=== PATIENT | female | born 1940 | race Two or more races ===

== ENCOUNTER 2016-12-07 16:25 | Inpatient (IN) | payer MEDICARE, MEDICAID ==
[~2016-12-07] VITALS: Ht 165.1 cm; Wt 80.7 kg
[~2016-12-07 16:25] MED LIST: ASPIRIN81 MG ORAL; DETROL2 MG ORAL; DEXILANT60 MG ORAL; FUROSEMIDE20 M1 ORAL; GLUCOSAMINE HC500 MG PO; HYDREA500 MG PO; HYDROCHLOROTHIA25 MG ORAL; METOPROLOL TART25 MG ORAL; NEURONTIN300 MG ORAL; OCUVITE1 EA ORAL; PEPCID20 MG ORAL; PREVACID30 MG ORAL; Primrose Oil PO
[2016-12-07 16:26] VITALS: BP 88/46
[2016-12-07 17:53] LABS: MEAN CORPUSCULAR HEMOGLOBIN 41.9 PG (27.0-31.0); MEAN CORPUSCULAR HGB CONC 35.5 G/DL (32.0-36.0); MEAN CORPUSCULAR VOLUME 118 FL (80-99); MEAN PLATELET VOLUME 8.3 FL (6.5-10.1); PLATELET COUNT 249 K/UL (150-450); RED BLOOD COUNT 2.28 M/UL (4.20-5.40); RED CELL DISTRIBUTION WIDTH 11.8 % (11.6-14.8); WHITE BLOOD COUNT 9.4 K/UL (4.8-10.8)
[2016-12-07 17:56] LABS: TROPONIN I < 0.30 ng/mL (<=0.30)
[2016-12-07 17:57] LABS: APPEARANCE,URINE SLIGHTLY CLOUDY; KETONES,URINE NEGATIVE (NEGATIVE); LEUKOCYTE ESTERASE ,URINE 3+ (NEGATIVE); NITRITE,URINE NEGATIVE (NEGATIVE); PH,URINE 5 (4.5-8.0); PROTEIN,URINE 3+ (NEGATIVE); UROBILINOGEN,URINE NORMAL MG/DL (0.0-1.0)
[2016-12-07 17:59] LABS: ALANINE AMINOTRANSFERASE 21 U/L (3-33); ALBUMIN/GLOBULIN RATIO 1.2 (1.0-2.7); ANION GAP 15 (5-15); ASPARTATE AMINO TRANSFERASE 29 U/L (5-40); CALCIUM 8.7 mg/dL (8.6-10.2); CARBON DIOXIDE 27 mEQ/L (20-30); CHLORIDE 94 mEQ/L (98-107); CREATININE 2.1 mg/dL (0.5-0.9); HEMOLYSIS 0; POTASSIUM 3.6 mEQ/L (3.4-4.9); SODIUM 136 mEQ/L (135-145); TOTAL PROTEIN 6.2 g/dL (6.6-8.7)
[2016-12-07 18:10] LABS: CKMB 3.7 ng/mL (< 3.8)
[2016-12-07 18:11] VITALS: BP 93/44
[2016-12-07 18:16] LABS: AMORPHOUS SEDIMENT,UR MODERATE /LPF; BACTERIA,URINE MODERATE /HPF; SQUAMOUS EPITHELIAL CELL,UR FEW /LPF (NONE/OCC)
[2016-12-07] MEDS ORDERED: cefTRIAXone 1 GM in NS 55 ML IVPB ONE (18:45)
[2016-12-07 19:59] LABS: ANISOCYTOSIS 1+; BAND NEUTROPHILS % (MANUAL) 7 % (0-8); BASOPHILS % (MANUAL) 0 % (0-2); EOSINOPHILS % (MANUAL) 0 % (0-3); HYPOCHROMASIA 1+; LYMPHOCYTES % (MANUAL) 8 % (20-45); NEUTROPHILS % (MANUAL) 81 % (45-75); PLATELET ESTIMATE ADEQUATE; PLATELET MORPHOLOGY NORMAL; TOTAL CELLS COUNTED 100
[2016-12-07 20:00] LABS: MACROCYTES 2+
[2016-12-07 20:16] VITALS: BP 102/46
[2016-12-07] MEDS ORDERED: Acetaminophen 500mg (ES) tab ORAL ONE (20:30)
--- NOTE | 2016-12-07 21:54 | Emergency Room Report ---
History of Present Illness General Chief Complaint: Dizziness Source: Patient Present Illness HPI 76-year-old female presents to ED for evaluation. Patient came from PMD office today feeling weak and dizzy. Initially hypotensive as per EMS. BP normal in triage. Patient states she's been feeling dizzy and weak since yesterday. Son states that for the last several days patient has had a fever and has felt weak. Frequent history of UTIs. Patient denies any cough. Denies any chest pain or shortness of breath. Denies sick contacts or recent travel. Denies nausea or vomiting. No other aggravating relieving factors. Denies any other associated symptom Allergies: Coded Allergies: CORTISONE (Verified Allergy, Unknown, 12/07/16) Patient History Past Medical History: HTN Past Surgical History: none Pertinent Family History: none Social History: Denies: alcohol use, drug use, smoking Last Menstrual Period: na Now: No Immunizations: UTD Reviewed Nursing Documentation: PMH: Agreed, PSxH: Agreed Nursing Documentation-PMH Past Medical History: No History, Except For Hx Cardiac Problems: Yes - high cholesterol Hx Hypertension: Yes Review of Systems All Other Systems: negative except mentioned in HPI Physical Exam Vital Signs Date Time Temp Pulse Resp B/P Pulse Ox O2 Delivery O2 Flow Rate FiO2 12/07/16 16:21 62 20 88/46 98 Room Air Sp02 EP Interpretation: reviewed, normal General Appearance: no apparent distress, alert, GCS 15, non-toxic Head: normocephalic, atraumatic Eyes: bilateral eye PERRL, bilateral eye normal inspection ENT: hearing grossly normal, normal pharynx, no angioedema, normal voice Neck: full range of motion, supple/symm/no masses Respiratory: chest non-tender, lungs clear, normal breath sounds, speaking full sentences Cardiovascular #1: regular rate, rhythm, no edema Cardiovascular #2: 2+ carotid (R), 2+ carotid (L), 2+ radial (R), 2+ radial (L) , 2+ dorsalis pedis (R), 2+ dorsalis pedis (L) Gastrointestinal: normal bowel sounds, non tender, soft, non-distended, no guarding, no rebound Rectal: deferred Genitourinary: normal inspection, no CVA tenderness Musculoskeletal: back normal, gait/station normal, normal range of motion, non- tender Neurologic: alert, oriented x3, responsive, motor strength/tone normal, sensory intact, speech normal Psychiatric: judgement/insight normal, memory normal, mood/affect normal, no suicidal/homicidal ideation Reflexes: 3+ bicep (R), 3+ bicep (L), 3+ tricep (R), 3+ tricep (L), 3+ knee (R) , 3+ knee (L) Skin: normal color, no rash, warm/dry, well hydrated Lymphatic: no adenopathy Medical Decision Making Diagnostic Impression: Primary Impression: UTI (urinary tract infection) Qualified Codes: N39.0 - Urinary tract infection, site not specified Additional Impression: ARF (acute renal failure) Qualified Codes: N17.9 - Acute kidney failure, unspecified ER Course Hospital Course 76-year-old female presents to ED c/o dizziness and weakness. Differential diagnoses include: SD/unstable angina, arrythmia, dehydration, CVA/ TIA Clinical course Patient placed on stretcher. on cardiac monitor technician. After initial history and physical I ordered labs, EKG, chest x-ray, IVFs, CT Brain labs reviewed- no leukocytosis, hemoglobin/hematocrit ok, BUN/Cr eleavted, troponins negative, UA + bacteria EKG- NSR, no acute process Chest x-ray- no acute process CT brain-unremarkable abx given. IVFs given Case discussed with Dr. Blackwood and he agreed to accept the patient to his service for further care and support I. I feel this is a highly complex case requiring extensive working including EKG/Rhythm strip, Xray/CT/US, Blood/urine lab work, repeat exams while in ED, and administration of strong opiates/narcotics for pain control, admission to hospital or close patient follow up. Diagnosis - UTI, ARF admitted to floor in serious condition Labs Test 12/07/16 17:20 12/07/16 17:30 White Blood Count 9.4 K/UL (4.8-10.8) Red Blood Count 2.28 M/UL (4.20-5.40) Hemoglobin 9.5 G/DL (12.0-16.0) Hematocrit 26.9 % (37.0-47.0) Mean Corpuscular Volume 118 FL (80-99) Mean Corpuscular Hemoglobin 41.9 PG (27.0-31.0) Mean Corpuscular Hemoglobin Concent 35.5 G/DL (32.0-36.0) Red Cell Distribution Width 11.8 % (11.6-14.8) Platelet Count 249 K/UL (150-450) Mean Platelet Volume 8.3 FL (6.5-10.1) Neutrophils (%) (Auto) % (45.0-75.0) Lymphocytes (%) (Auto) % (20.0-45.0) Monocytes (%) (Auto) % (1.0-10.0) Eosinophils (%) (Auto) % (0.0-3.0) Basophils (%) (Auto) % (0.0-2.0) Differential Total Cells Counted 100 Neutrophils % (Manual) 81 % (45-75) Lymphocytes % (Manual) 8 % (20-45) Monocytes % (Manual) 4 % (1-10) Eosinophils % (Manual) 0 % (0-3) Basophils % (Manual) 0 % (0-2) Band Neutrophils 7 % (0-8) Platelet Estimate Adequate Platelet Morphology Normal Hypochromasia 1+ Anisocytosis 1+ Macrocytosis 2+ Sodium Level 136 mEQ/L (135-145) Potassium Level 3.6 mEQ/L (3.4-4.9) Chloride Level 94 mEQ/L (98-107) Carbon Dioxide Level 27 mEQ/L (20-30) Anion Gap 15 (5-15) Blood Urea Nitrogen 57 mg/dL (7-23) Creatinine 2.1 mg/dL (0.5-0.9) Estimat Glomerular Filtration Rate mL/min (>60) Glucose Level 125 mg/dL (74-106) Calcium Level 8.7 mg/dL (8.6-10.2) Total Bilirubin 1.0 mg/dL (0.0-1.2) Aspartate Amino Transf (AST/SGOT) 29 U/L (5-40) Alanine Aminotransferase (ALT/SGPT) 21 U/L (3-33) Alkaline Phosphatase 42 U/L (35-104) Total Creatine Kinase 288 U/L (26-140) Creatine Kinase MB 3.7 ng/mL (< 3.8) Creatine Kinase MB Relative Index 1.2 Troponin I < 0.30 ng/mL (<=0.30) Pro-B-Type Natriuretic Peptide 3389 pg/mL (0-125) Total Protein 6.2 g/dL (6.6-8.7) Albumin 3.4 g/dL (3.5-5.2) Globulin 2.8 g/dL Albumin/Globulin Ratio 1.2 (1.0-2.7) Urine Color Yellow Urine Appearance Slightly cloudy Urine pH 5 (4.5-8.0) Urine Specific [place] 1.015 (1.005-1.035) Urine Protein 3+ (NEGATIVE) Urine Glucose (UA) Negative (NEGATIVE) Urine Ketones Negative (NEGATIVE) Urine Occult Blood 5+ (NEGATIVE) Urine Nitrite Negative (NEGATIVE) Urine Bilirubin Negative (NEGATIVE) Urine Urobilinogen Normal MG/DL (0.0-1.0) Urine Leukocyte Esterase 3+ (NEGATIVE) Urine RBC 10-15 /HPF (0 - 2) Urine WBC 5-10 /HPF (0 - 2) Urine Squamous Epithelial Cells Few /LPF (NONE/OCC) Urine Amorphous Sediment Moderate /LPF (NONE) Urine Bacteria Moderate /HPF (NONE) EKG Diagnostic Results Rate: normal Rhythm: NSR ST Segments: no acute changes ASA given to the pt in ED: No Rhythm Strip Diag. Results EP Interpretation: yes Rhythm: NSR, no PVC's, no ectopy Chest X-Ray Diagnostic Results EP Interpretation: Yes Findings: no consolidation, no effusion, no pneumothorax, no acute cardiopulmonary disease Number of Views: 1 CT/MRI/US Diagnostic Results CT/MRI/US Diagnostic Results : Imaging Test Ordered: CT head Impression no acute process Last Vital Signs Date Time Temp Pulse Resp B/P Pulse Ox O2 Delivery O2 Flow Rate FiO2 12/07/16 18:11 58 20 93/44 99 Room Air Status: improved Disposition: ADMITTED INPATIENT Condition: Serious Referrals: Karen Blackwood MD (PCP) HERO MARQUEZ M.D. Dec 07, 2016 21:54
[2016-12-07] MEDS ORDERED: DIOVAN80 MG ORAL (21:57)
[2016-12-07 22:01] VITALS: BP 99/49
[2016-12-07] MEDS ORDERED: [UNRECOGNIZED DRUG - OTHER] BOTH EYES (22:04)
[2016-12-07] MEDS ORDERED: PATADAY2.5 ML OP (22:04)
[2016-12-07] MEDS ORDERED: ACULAR5 ML RIGHT EYE (22:04)
[2016-12-07] MEDS ORDERED: TIMOPTIC 0.5%1 DRO1 BOTH EYES (22:04)
[2016-12-08] VITALS (8 sets, daily range): BP systolic 76–121; BP diastolic 40–106
[2016-12-08 06:59] LABS: MEAN CORPUSCULAR HEMOGLOBIN 39.6 PG (27.0-31.0); MEAN CORPUSCULAR HGB CONC 32.8 G/DL (32.0-36.0); MEAN CORPUSCULAR VOLUME 121 FL (80-99); MEAN PLATELET VOLUME 8.9 FL (6.5-10.1); PLATELET COUNT 274 K/UL (150-450); RED BLOOD COUNT 2.64 M/UL (4.20-5.40); RED CELL DISTRIBUTION WIDTH 12.2 % (11.6-14.8); WHITE BLOOD COUNT 8.1 K/UL (4.8-10.8)
[2016-12-08] MEDS ORDERED: D5 1/2NS 1,000 ML IV SCH (07:00)
[2016-12-08 07:51] LABS: ALANINE AMINOTRANSFERASE 24 U/L (3-33); ANION GAP 16 (5-15); ASPARTATE AMINO TRANSFERASE 33 U/L (5-40); CALCIUM 8.8 mg/dL (8.6-10.2); CARBON DIOXIDE 26 mEQ/L (20-30); CHLORIDE 95 mEQ/L (98-107); CREATININE 2.4 mg/dL (0.5-0.9); HEMOLYSIS 3; SODIUM 137 mEQ/L (135-145); TOTAL PROTEIN 6.7 g/dL (6.6-8.7)
[2016-12-08 08:26] LABS: ERYTHROCYTE SEDIMENTATION RATE 117 MM/HR (0-30)
[2016-12-08] MEDS: Heparin 5000 units/ml inj SUBQ SCH ×2 (08:34→21:48)
--- NOTE | 2016-12-08 09:55 | History & Physical ---
Sheela Mcbride NP 12/08/16 0954: History and Physical History & Physicial [id number] Karen Blackwood MD 12/08/16 1857: History and Physical History & Physicial The patient was seen and examined at bedside and all new and available data was reviewed in the patients chart. I agree with the above findings, impression and plan. (Patient seen earlier today. Signature stamp does not reflect patient encounter time.). -MD Rae Jerez Jacqueline Robles NP Dec 08, 2016 09:54 Karen Blackwood MD Dec 08, 2016 18:57
[2016-12-08 09:57] LABS: CHOLESTEROL/HDL RATIO 8.4 (3.3-4.4)
[2016-12-08] MEDS ORDERED: cefTRIAXone 1 GM in D5W 55 ML IVPB SCH (10:00)
--- NOTE | 2016-12-08 10:11 | Diagnostic Imaging Report ---
Indication: Dizziness Technique: Continuous helical CT scanning of the head was performed without intravenous contrast material. Axial and coronal 5 mm sections were generated. Radiation dose was minimized using automated exposure control Dose: Total Dose Length Product - DLP [address] Dose Index - CTDIvol(s) 70.38 mGy. Comparison: Findings: The ventricular system is normal in size and configuration for age. There is no shift of midline structures. No abnormal extra-axial fluid collections are noted. There is no evidence of intracerebral bleeding. No other abnormal high or low density areas are noted within the brain. There is minimal ethmoid sinus mucosal thickening. There is questionably evidence of prior cataract surgery. The calvarium is intact. Impression: Normal CT scan of the head without contrast material. This agrees with the preliminary interpretation provided overnight by Dr. Hidalgo The CT scanner at [facility] is accredited by the [employer] and the scans are performed using protocols designed to limit radiation exposure to as low as reasonably achievable to attain images of sufficient resolution adequate for diagnostic evaluation.
[2016-12-08] MEDS ORDERED: D5 1/2NS 1000ml IV ONE (10:22)
[2016-12-08 10:30] LABS: BAND NEUTROPHILS % (MANUAL) 7 % (0-8); BASOPHILS % (MANUAL) 0 % (0-2); EOSINOPHILS % (MANUAL) 0 % (0-3); LYMPHOCYTES % (MANUAL) 11 % (20-45); MACROCYTES 2+; NEUTROPHILS % (MANUAL) 78 % (45-75); PLATELET ESTIMATE ADEQUATE; PLATELET MORPHOLOGY NORMAL; TOTAL CELLS COUNTED 100
[2016-12-08 10:31] LABS: HYPOCHROMASIA 1+
--- NOTE | 2016-12-08 12:27 | Diagnostic Imaging Report ---
Indication: Shortness of breath Technique: One view of the chest Comparison: none Findings: The heart is borderline enlarged. There is a calcified granuloma at the right lung base. Lungs and pleural spaces are otherwise clear. Impression: No acute process Evidence of old granulomatous disease
[2016-12-08] MEDS: Aspirin Baby 81mg ORAL SCH (12:43)
--- NOTE | 2016-12-08 12:57 | Cardiology Progress Note ---
Assessment/Plan Assessment/Plan hypotension volume vs sepsis uti essential thrombocytosis on myelosuppressive therapy megaloblastic anemia back pain ivf ivabx watch bp if needed transfer to icu for pressor Objective Last 24 Hour Vital Signs Date Time Temp Pulse Resp B/P Pulse Ox O2 Delivery O2 Flow Rate FiO2 12/08/16 12:17 98.2 98 20 121/106 96 Room Air 12/08/16 08:34 95/48 12/08/16 08:14 97.9 72 14 84/40 95 Room Air 12/08/16 08:00 74 12/08/16 04:02 62 12/08/16 04:00 96.8 82 19 107/42 92 Room Air 12/08/16 01:30 96.3 70 22 103/50 100 Room Air 12/08/16 01:30 69 12/08/16 00:00 97.6 66 18 76/43 96 Room Air 12/07/16 22:30 98.2 71 20 99/49 100 Room Air 12/07/16 22:01 98.2 71 20 99/49 100 Room Air 12/07/16 20:16 98.9 61 20 102/46 99 Room Air 12/07/16 18:11 58 20 93/44 99 Room Air 12/07/16 16:26 20 88/46 98 Room Air 12/07/16 16:21 62 20 88/46 98 Room Air Intake and Output 12/07/16 12/08/16 19:00 07:00 Intake Total 0 ml 1908 ml Balance 0 ml 1908 ml Intake Oral 0 ml 240 ml IV Total 1668 ml # Voids 2 Laboratory Tests Test 12/07/16 17:20 12/07/16 17:30 12/08/16 05:30 White Blood Count 9.4 K/UL (4.8-10.8) 8.1 K/UL (4.8-10.8) Red Blood Count 2.28 M/UL (4.20-5.40) L 2.64 M/UL (4.20-5.40) L Hemoglobin 9.5 G/DL (12.0-16.0) L 10.5 G/DL (12.0-16.0) L Hematocrit 26.9 % (37.0-47.0) L 31.9 % (37.0-47.0) L Mean Corpuscular Volume 118 FL (80-99) H 121 FL (80-99) H Mean Corpuscular Hemoglobin 41.9 PG (27.0-31.0) H 39.6 PG (27.0-31.0) H Mean Corpuscular Hemoglobin Concent 35.5 G/DL (32.0-36.0) 32.8 G/DL (32.0-36.0) Red Cell Distribution Width 11.8 % (11.6-14.8) 12.2 % (11.6-14.8) Platelet Count 249 K/UL (150-450) 274 K/UL (150-450) Mean Platelet Volume 8.3 FL (6.5-10.1) 8.9 FL (6.5-10.1) Neutrophils (%) (Auto) % (45.0-75.0) % (45.0-75.0) Lymphocytes (%) (Auto) % (20.0-45.0) % (20.0-45.0) Monocytes (%) (Auto) % (1.0-10.0) % (1.0-10.0) Eosinophils (%) (Auto) % (0.0-3.0) % (0.0-3.0) Basophils (%) (Auto) % (0.0-2.0) % (0.0-2.0) Differential Total Cells Counted 100 100 Neutrophils % (Manual) 81 % (45-75) H 78 % (45-75) H Lymphocytes % (Manual) 8 % (20-45) L 11 % (20-45) L Monocytes % (Manual) 4 % (1-10) 4 % (1-10) Eosinophils % (Manual) 0 % (0-3) 0 % (0-3) Basophils % (Manual) 0 % (0-2) 0 % (0-2) Band Neutrophils 7 % (0-8) 7 % (0-8) Platelet Estimate Adequate Adequate Platelet Morphology Normal Normal Hypochromasia 1+ 1+ Anisocytosis 1+ Macrocytosis 2+ 2+ Sodium Level 136 mEQ/L (135-145) 137 mEQ/L (135-145) Potassium Level 3.6 mEQ/L (3.4-4.9) 4.0 mEQ/L (3.4-4.9) Chloride Level 94 mEQ/L (98-107) L 95 mEQ/L (98-107) L Carbon Dioxide Level 27 mEQ/L (20-30) 26 mEQ/L (20-30) Anion Gap 15 (5-15) 16 (5-15) H Blood Urea Nitrogen 57 mg/dL (7-23) H 64 mg/dL (7-23) H Creatinine 2.1 mg/dL (0.5-0.9) H 2.4 mg/dL (0.5-0.9) H Estimat Glomerular Filtration Rate mL/min (>60) mL/min (>60) Glucose Level 125 mg/dL (74-106) H 106 mg/dL (74-106) Calcium Level 8.7 mg/dL (8.6-10.2) 8.8 mg/dL (8.6-10.2) Total Bilirubin 1.0 mg/dL (0.0-1.2) 0.5 mg/dL (0.0-1.2) Aspartate Amino Transf (AST/SGOT) 29 U/L (5-40) 33 U/L (5-40) Alanine Aminotransferase (ALT/SGPT) 21 U/L (3-33) 24 U/L (3-33) Alkaline Phosphatase 42 U/L (35-104) 65 U/L (35-104) Total Creatine Kinase 288 U/L (26-140) H Creatine Kinase MB 3.7 ng/mL (< 3.8) Creatine Kinase MB Relative Index 1.2 Troponin I < 0.30 ng/mL (<=0.30) Pro-B-Type Natriuretic Peptide 3389 pg/mL (0-125) H Total Protein 6.2 g/dL (6.6-8.7) L 6.7 g/dL (6.6-8.7) Albumin 3.4 g/dL (3.5-5.2) L 3.5 g/dL (3.5-5.2) Globulin 2.8 g/dL 3.2 g/dL Albumin/Globulin Ratio 1.2 (1.0-2.7) 1.0 (1.0-2.7) Urine Color Yellow Urine Appearance Slightly cloudy Urine pH 5 (4.5-8.0) Urine Specific [place] 1.015 (1.005-1.035) Urine Protein 3+ (NEGATIVE) H Urine Glucose (UA) Negative (NEGATIVE) Urine Ketones Negative (NEGATIVE) Urine Occult Blood 5+ (NEGATIVE) H Urine Nitrite Negative (NEGATIVE) Urine Bilirubin Negative (NEGATIVE) Urine Urobilinogen Normal MG/DL (0.0-1.0) Urine Leukocyte Esterase 3+ (NEGATIVE) H Urine RBC 10-15 /HPF (0 - 2) H Urine WBC 5-10 /HPF (0 - 2) H Urine Squamous Epithelial Cells Few /LPF (NONE/OCC) Urine Amorphous Sediment Moderate /LPF (NONE) H Urine Bacteria Moderate /HPF (NONE) H Erythrocyte Sedimentation Rate 117 MM/HR (0-30) H Lactic Acid Level 1.40 mmol/L (0.66-2.22) Triglycerides Level 158 mg/dL (< 150) H Cholesterol Level 84 mg/dL (< 200) LDL Cholesterol 42 mg/dL (60-99) L HDL Cholesterol 10 mg/dL (> 60) Cholesterol/HDL Ratio 8.4 (3.3-4.4) H Microbiology Date/Time Source Procedure Growth Status 12/07/16 17:30 Urine,Clean Catch Urine Culture - Preliminary Gram Negative Bacillus 1 Resulted EDI RAMIREZ Dec 08, 2016 12:57
[2016-12-08] MEDS ORDERED: Piperacillin/Tazobactam 3.375 GM in D5W 110 ML IVPB SCH (13:00)
--- NOTE | 2016-12-08 15:06 | Consultation ---
Consult Note Consult Note asked to eval for renal failure- 76-year-old female presents to ED for evaluation. Patient came from PMD office today feeling weak and dizzy. Initially hypotensive as per EMS. BP normal in triage. Patient states she's been feeling dizzy and weak since yesterday. Son states that for the last several days patient has had a fever and has felt weak. Frequent history of UTIs. Patient denies any cough. Denies any chest pain or shortness of breath. Denies sick contacts or recent travel. Denies nausea or vomiting. No other aggravating relieving factors. Denies any other associated symptom Allergies: Coded Allergies: CORTISONE (Verified Allergy, Unknown, 12/07/16) Past Medical History: HTN Past Medical History: No History, Except For Hx Cardiac Problems: Yes - high cholesterol Hx Hypertension: Yes Patient interviewed and examined Assessment/Plan Acute renal failure- Mainly PreRenal due to diuretics, ? Underlying CKD ? 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
[2016-12-08] MEDS ORDERED: NS 275 ML IVPB ONE (15:30)
[2016-12-08] MEDS: Tolterodine 2mg tab ORAL SCH (17:40)
[2016-12-08] MEDS: Hydroxyurea 500mg cap ORAL SCH (17:40)
[2016-12-08] MEDS: D5NS 1,000 ML IV SCH (17:43)
[2016-12-08 20:40] LABS: ALANINE AMINOTRANSFERASE 21 U/L (3-33); ANION GAP 14 (5-15); ASPARTATE AMINO TRANSFERASE 25 U/L (5-40); CALCIUM 8.4 mg/dL (8.6-10.2); CARBON DIOXIDE 26 mEQ/L (20-30); CHLORIDE 93 mEQ/L (98-107); CREATININE 2.2 mg/dL (0.5-0.9); HEMOLYSIS 9; POTASSIUM 3.4 mEQ/L (3.4-4.9); SODIUM 133 mEQ/L (135-145); TOTAL PROTEIN 6.1 g/dL (6.6-8.7)
[2016-12-08] MEDS: Timolol 0.5% Op Soln 2.5ml BOTH EYES SCH (21:49)
[2016-12-09] VITALS (7 sets, daily range): BP systolic 95–119; BP diastolic 40–56
[2016-12-09] MEDS: Piperacillin/Tazobactam 3.375 GM in D5W 110 ML IVPB SCH ×2 (00:29→08:53)
[2016-12-09] MEDS: D5NS 1,000 ML IV SCH ×2 (06:46→17:29)
[2016-12-09 07:44] LABS: MEAN CORPUSCULAR HEMOGLOBIN 39.3 PG (27.0-31.0); MEAN CORPUSCULAR HGB CONC 32.8 G/DL (32.0-36.0); MEAN CORPUSCULAR VOLUME 120 FL (80-99); MEAN PLATELET VOLUME 8.1 FL (6.5-10.1); PLATELET COUNT 275 K/UL (150-450); RED CELL DISTRIBUTION WIDTH 12.3 % (11.6-14.8); WHITE BLOOD COUNT 4.8 K/UL (4.8-10.8)
[2016-12-09 07:48] LABS: ALANINE AMINOTRANSFERASE 19 U/L (3-33); ANION GAP 16 (5-15); ASPARTATE AMINO TRANSFERASE 25 U/L (5-40); CALCIUM 8.7 mg/dL (8.6-10.2); CARBON DIOXIDE 25 mEQ/L (20-30); CHLORIDE 98 mEQ/L (98-107); CREATININE 2.3 mg/dL (0.5-0.9); HEMOLYSIS 13; POTASSIUM 3.1 mEQ/L (3.4-4.9); SODIUM 139 mEQ/L (135-145); TOTAL PROTEIN 5.8 g/dL (6.6-8.7)
[2016-12-09 07:58] LABS: TROPONIN I < 0.30 ng/mL (<=0.30)
[2016-12-09 08:07] LABS: HEMOGLOBIN A1C 4.7 % (< 6.0)
[2016-12-09 08:23] LABS: CRP QUANT 25.6 mg/dL (< 0.5); MAGNESIUM 2.3 mg/dL (1.7-2.5); PHOSPHORUS 2.8 mg/dL (2.5-4.8); URIC ACID 8.8 mg/dL (3.0-7.5)
[2016-12-09] MEDS: Hydroxyurea 500mg cap ORAL SCH (08:51)
[2016-12-09] MEDS: Aspirin Baby 81mg ORAL SCH (08:51)
[2016-12-09] MEDS: Tolterodine 2mg tab ORAL SCH ×2 (08:51→17:29)
[2016-12-09] MEDS: Heparin 5000 units/ml inj SUBQ SCH ×2 (08:52→21:16)
--- NOTE | 2016-12-09 09:20 | Cardiology Report ---
APPROVED REPORT EXAM: Two-dimensional and M-mode echocardiogram with Doppler and color Doppler. INDICATION Syncope M-Mode DIMENSIONS IVSd0.7 (0.7-1.1cm)Left Atrium (MM)3.5 (1.6-4.0cm) LVDd4.1 (3.5-5.6cm)Aortic Root2.9 (2.0-3.7cm) PWd0.7 (0.7-1.1cm)Aortic Cusp Exc.1.6 (1.5-2.0cm) LVDs2.0 (2.5-4.0cm) PWs0.7 cm Technically difficult study due to poor acoustic windows. Normal left ventricular chamber size, systolic function and wall motion. Left ventricular ejection fraction estimated to be 55-60 %. Mild left ventricular hypertrophy. No evidence of pericardial fat or effusion. Right cardiac chamber sizes are within normal limits. Mild left atrial enlargement by 2D. Focal aortic valve sclerosis with adequate cusp excursion Thickened mitral valve leaflets with normal excursion. Mild mitral annulus and aortic root calcification. Pulmonic valve not well visualized. Normal tricuspid valve structure. IVC is normal in size with physiologic collapse. A color flow and spectral Doppler study was performed and revealed: No aortic regurgitation. Trace mitral regurgitation. Left ventricular diastolic dysfunction grade 1. Mild tricuspid regurgitation. Tricuspid systolic velocities suggests peak right ventricular systolic pressure of 33 mmHg Pulmonic regurgitation present.
--- NOTE | 2016-12-09 09:50 | Diagnostic Imaging Report ---
Indication: Abdominal distention, pain, acute renal failure, abnormal renal function tests Technique: De-scale and duplex images of the upper abdomen were obtained. Grayscale and duplex images of the kidneys, retroperitoneum, and bladder Comparison: None Findings: Gallbladder demonstrates gallstones. No gallbladder wall thickening or pericholecystic fluid. Sonographic Mckeon's sign is negative. Common bile duct measures 4 mm in diameter. No intrahepatic biliary ductal dilatation. Liver is enlarged, demonstrates slightly coarsened echogenicity. No focal abnormality. Portal vein and hepatic veins are patent.. Pancreas is unremarkable. Spleen is enlarged, measuring 14 cm long axis dimension. Left kidney measures 11.1 cm in length. Right kidney measures 10.9 cm length. Both kidneys demonstrate normal echogenicity. There is no hydronephrosis. There is a slightly prominent left renal pelvis. No focal abnormality. Non-aneurysmal abdominal aorta. Bladder is empty, contains a George catheter Impression: Cholelithiasis. Negative for dilated bile ducts Slightly enlarged liver with coarsened echogenicity, hepatocellular disease not excludable Mild splenomegaly Empty bladder with a George catheter Mild prominence to the left renal, but no definite hydronephrosis or evidence of obstructive uropathy
[2016-12-09] MEDS ORDERED: D5NS 1000ml IV ONE (09:53)
[2016-12-09] MEDS ORDERED: NS 275ml ONE (09:53)
[2016-12-09 10:47] LABS: BAND NEUTROPHILS % (MANUAL) 4 % (0-8); BASOPHILS % (MANUAL) 0 % (0-2); EOSINOPHILS % (MANUAL) 1 % (0-3); LYMPHOCYTES % (MANUAL) 14 % (20-45); MACROCYTES 2+; NEUTROPHILS % (MANUAL) 71 % (45-75); PLATELET ESTIMATE ADEQUATE; PLATELET MORPHOLOGY NORMAL; TOTAL CELLS COUNTED 100
[2016-12-09 11:19] LABS: OTHERS PATHOLOGIST COMMENT
[2016-12-09] MEDS: DuoNeb 0.5-3(2.5)mg/3ml neb HHN PRN ×2 (11:54→20:17)
[2016-12-09] MEDS: FORTEO SUBQ SCH (12:47)
--- NOTE | 2016-12-09 13:32 | Diagnostic Imaging Report ---
Indication: SOB Technique: One view of the chest Comparison: 12/07/2016 Findings: Atelectasis is seen at the left lung base. Lungs and pleural spaces are otherwise clear. Heart size is normal. Surgical hardware is seen in the lower lumbar spine Impression: Left basilar atelectasis. No acute process otherwise
--- NOTE | 2016-12-09 14:52 | General Progress Note ---
Assessment/Plan Status: unchanged Status Narrative Cr same Assessment/Plan status: Acute renal failure- Mainly PreRenal due to diuretics, ? Underlying CKD ? 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 There is no hydronephrosis. There is a slightly prominent left renal pelvis. Subjective ROS Limited/Unobtainable: No Constitutional: Reports: malaise Allergies: Coded Allergies: CORTISONE (Verified Allergy, Unknown, 12/07/16) Objective Last 24 Hour Vital Signs Date Time Temp Pulse Resp B/P Pulse Ox O2 Delivery O2 Flow Rate FiO2 12/09/16 11:57 67 18 97 Room Air 12/09/16 11:50 69 18 90 Room Air 12/09/16 11:50 69 18 Room Air 12/09/16 11:37 99.1 73 18 108/48 95 Room Air 12/09/16 07:45 97.2 71 18 103/53 95 Room Air 12/09/16 04:00 84 12/09/16 04:00 98.6 82 21 107/40 93 Room Air 12/09/16 00:00 98.0 83 21 103/40 96 Room Air 12/09/16 00:00 80 12/08/16 20:00 85 12/08/16 20:00 97.7 86 20 114/55 93 Room Air 12/08/16 16:00 76 12/08/16 15:54 100.6 102 18 114/50 95 Room Air Intake and Output 12/08/16 12/09/16 19:00 07:00 Intake Total 1615.0 ml 1010.0 ml Output Total 600 ml 700 ml Balance 1015.0 ml 310.0 ml Intake Oral 1100 ml IV Total 515.0 ml 1010.0 ml Output Urine Total 600 ml 700 ml Laboratory Tests 12/08/16 15:50: Urine Random Sodium 25 12/08/16 20:00: Sodium Level 133L, Potassium Level 3.4, Chloride Level 93L, Carbon Dioxide Level 26, Anion Gap 14, Blood Urea Nitrogen 60H, Creatinine 2.2H, Estimat Glomerular Filtration Rate , Glucose Level 115H, Calcium Level 8.4L, Total Bilirubin 0.3, Aspartate Amino Transf (AST/SGOT) 25, Alanine Aminotransferase ( ALT/SGPT) 21, Alkaline Phosphatase 49, Total Protein 6.1L, Albumin 3.1L, Globulin 3.0, Albumin/Globulin Ratio 1.0 12/09/16 05:30: Sodium Level 139, Potassium Level 3.1L, Chloride Level 98, Carbon Dioxide Level 25, Anion Gap 16H, Blood Urea Nitrogen 58H, Creatinine 2.3H, Estimat Glomerular Filtration Rate , Glucose Level 119H, Calcium Level 8.7, Total Bilirubin 0.3, Aspartate Amino Transf (AST/SGOT) 25, Alanine Aminotransferase (ALT/SGPT) 19, Alkaline Phosphatase 47, Total Protein 5.8L, Albumin 2.9L, Globulin 2.9, Albumin /Globulin Ratio 1.0, White Blood Count 4.8, Red Blood Count 2.30L, Hemoglobin 9.0L, Hematocrit 27.5L, Mean Corpuscular Volume 120H, Mean Corpuscular Hemoglobin 39.3H, Mean Corpuscular Hemoglobin Concent 32.8, Red Cell Distribution Width 12.3, Platelet Count 275, Mean Platelet Volume 8.1, Neutrophils (%) (Auto) , Lymphocytes (%) (Auto) , Monocytes (%) (Auto) , Eosinophils (%) (Auto) , Basophils (%) (Auto) , Differential Total Cells Counted 100, Neutrophils % (Manual) 71, Lymphocytes % (Manual) 14L, Monocytes % (Manual) 10, Eosinophils % (Manual) 1, Basophils % (Manual) 0, Band Neutrophils 4, Platelet Estimate Adequate, Platelet Morphology Normal, Macrocytosis 2+, Urine Eosinophils None seen, Hemoglobin A1c 4.7, Uric Acid 8.8H, Phosphorus Level 2.8, Magnesium Level 2.3, Gamma Glutamyl Transpeptidase 18, Troponin I < 0.30, C-Reactive Protein, Quantitative 25.6H, Pro-B-Type Natriuretic Peptide 2413H, Vitamin B12 Level 438, Thyroid Stimulating Hormone (TSH) 1.110, Cortisol [Pending] Height (Feet): 5 Height (Inches): 5.00 Weight (Pounds): 185 General Appearance: no apparent distress Cardiovascular: normal rate Respiratory/Chest: decreased breath sounds Abdomen: soft Objective other PE not changed MARIA ESTHER BALDWIN Dec 09, 2016 14:52
[2016-12-09] MEDS ORDERED: NS 250 ML IVPB ONE (15:15)
--- NOTE | 2016-12-09 16:55 | Infectious Diseases Prog Note ---
Assessment/Plan Assessment/Plan A: E. coli UTI Acute renal failure Anemia P; change Zosyn to Rocephin Subjective ROS Limited/Unobtainable: No Constitutional: Reports: no symptoms Respiratory: Reports: dry cough Gastrointestinal/Abdominal: Reports: no symptoms Genitourinary: Reports: no symptoms Allergies: Coded Allergies: CORTISONE (Verified Allergy, Unknown, 12/07/16) Objective Vital Signs Last 24 Hour Vital Signs Date Time Temp Pulse Resp B/P Pulse Ox O2 Delivery O2 Flow Rate FiO2 12/09/16 16:23 98.2 71 20 95/53 96 Room Air 12/09/16 11:57 67 18 97 Room Air 12/09/16 11:50 69 18 90 Room Air 12/09/16 11:50 69 18 Room Air 12/09/16 11:37 99.1 73 18 108/48 95 Room Air 12/09/16 07:45 97.2 71 18 103/53 95 Room Air 12/09/16 04:00 84 12/09/16 04:00 98.6 82 21 107/40 93 Room Air 12/09/16 00:00 98.0 83 21 103/40 96 Room Air 12/09/16 00:00 80 12/08/16 20:00 85 12/08/16 20:00 97.7 86 20 114/55 93 Room Air Height (Feet): 5 Height (Inches): 5.00 Weight (Pounds): 185 General Appearance: no acute distress HEENT: mucous membranes moist Respiratory/Chest: lungs clear Cardiovascular: normal rate Abdomen: soft, non tender Extremities: other - non pitting edema of legs L>R Microbiology Date/Time Source Procedure Growth Status 12/07/16 17:30 Urine,Clean Catch Urine Culture - Final Escherichia Coli Complete Laboratory Tests Test 12/08/16 20:00 12/09/16 05:30 Sodium Level 133 mEQ/L (135-145) L 139 mEQ/L (135-145) Potassium Level 3.4 mEQ/L (3.4-4.9) 3.1 mEQ/L (3.4-4.9) L Chloride Level 93 mEQ/L (98-107) L 98 mEQ/L (98-107) Carbon Dioxide Level 26 mEQ/L (20-30) 25 mEQ/L (20-30) Anion Gap 14 (5-15) 16 (5-15) H Blood Urea Nitrogen 60 mg/dL (7-23) H 58 mg/dL (7-23) H Creatinine 2.2 mg/dL (0.5-0.9) H 2.3 mg/dL (0.5-0.9) H Estimat Glomerular Filtration Rate mL/min (>60) mL/min (>60) Glucose Level 115 mg/dL (74-106) H 119 mg/dL (74-106) H Calcium Level 8.4 mg/dL (8.6-10.2) L 8.7 mg/dL (8.6-10.2) Total Bilirubin 0.3 mg/dL (0.0-1.2) 0.3 mg/dL (0.0-1.2) Aspartate Amino Transf (AST/SGOT) 25 U/L (5-40) 25 U/L (5-40) Alanine Aminotransferase (ALT/SGPT) 21 U/L (3-33) 19 U/L (3-33) Alkaline Phosphatase 49 U/L (35-104) 47 U/L (35-104) Total Protein 6.1 g/dL (6.6-8.7) L 5.8 g/dL (6.6-8.7) L Albumin 3.1 g/dL (3.5-5.2) L 2.9 g/dL (3.5-5.2) L Globulin 3.0 g/dL 2.9 g/dL Albumin/Globulin Ratio 1.0 (1.0-2.7) 1.0 (1.0-2.7) White Blood Count 4.8 K/UL (4.8-10.8) Red Blood Count 2.30 M/UL (4.20-5.40) L Hemoglobin 9.0 G/DL (12.0-16.0) L Hematocrit 27.5 % (37.0-47.0) L Mean Corpuscular Volume 120 FL (80-99) H Mean Corpuscular Hemoglobin 39.3 PG (27.0-31.0) H Mean Corpuscular Hemoglobin Concent 32.8 G/DL (32.0-36.0) Red Cell Distribution Width 12.3 % (11.6-14.8) Platelet Count 275 K/UL (150-450) Mean Platelet Volume 8.1 FL (6.5-10.1) Neutrophils (%) (Auto) % (45.0-75.0) Lymphocytes (%) (Auto) % (20.0-45.0) Monocytes (%) (Auto) % (1.0-10.0) Eosinophils (%) (Auto) % (0.0-3.0) Basophils (%) (Auto) % (0.0-2.0) Differential Total Cells Counted 100 Neutrophils % (Manual) 71 % (45-75) Lymphocytes % (Manual) 14 % (20-45) L Monocytes % (Manual) 10 % (1-10) Eosinophils % (Manual) 1 % (0-3) Basophils % (Manual) 0 % (0-2) Band Neutrophils 4 % (0-8) Platelet Estimate Adequate Platelet Morphology Normal Macrocytosis 2+ Urine Eosinophils None seen Hemoglobin A1c 4.7 % (< 6.0) Uric Acid 8.8 mg/dL (3.0-7.5) H Phosphorus Level 2.8 mg/dL (2.5-4.8) Magnesium Level 2.3 mg/dL (1.7-2.5) Gamma Glutamyl Transpeptidase 18 U/L (5-36) Troponin I < 0.30 ng/mL (<=0.30) C-Reactive Protein, Quantitative 25.6 mg/dL (< 0.5) H Pro-B-Type Natriuretic Peptide 2413 pg/mL (0-125) H Vitamin B12 Level 438 pg/mL (211-946) Thyroid Stimulating Hormone (TSH) 1.110 uIU/mL (0.300-4.500) Cortisol Pending Current Medications Medications (Trade) Dose Ordered Sig/Rhiannon Route PRN Reason Start Time Stop Time Status Last Admin Dose Admin Acetaminophen (Tylenol) 650 mg Q6H PRN ORAL Mild Pain/Temp > 100.5 12/08/16 00:30 01/07/17 00:29 12/08/16 06:07 Albuterol/ Ipratropium (DuoNeb 0.5-3(2.5)mg/3ml) 3 ml Q4H PRN HHN Shortness of Breath 12/09/16 10:30 12/14/16 10:29 12/09/16 11:54 Aspirin (ASA) 81 mg DAILY ORAL 12/08/16 12:00 01/07/17 11:59 12/09/16 08:51 Dextrose/Sodium Chloride (D5ns) 1,000 ml @ 75 mls/hr [id number] IV 12/09/16 15:00 01/08/17 14:59 UNV Gabapentin (Neurontin) 300 mg THREE TIMES A DAY ORAL 12/08/16 13:00 01/07/17 12:59 12/09/16 12:46 Heparin Sodium (Porcine) (Heparin 5000 units/ml) 5,000 units EVERY 12 HOURS SUBQ 12/08/16 09:00 01/07/17 08:59 12/09/16 08:52 Hydroxyurea 500 mg 500 mg DAILY ORAL 12/08/16 18:00 12/13/16 17:59 12/09/16 08:51 Lidocaine (Lidoderm 5% PATCH) 1 patch DAILY TDERMAL 12/08/16 12:00 01/07/17 11:59 12/09/16 08:51 Patient Own Medication 20 ea 20 ea DAILY SUBQ 12/09/16 13:30 01/08/17 13:29 12/09/16 12:47 Piperacillin Sod/ Tazobactam Sod/ Dextrose (Zosyn/D5W) 110 ml @ 27.5 mls/hr EVERY 12 HOURS IVPB 12/09/16 00:00 12/16/16 00:00 12/09/16 08:53 Ranitidine HCl 150 mg 150 mg BEDTIME ORAL 12/08/16 21:00 01/07/17 20:59 12/08/16 21:49 Sodium Chloride (NS) 500 ml @ 999 mls/hr DAILY PRN IVPB HYPOTESNSION 12/08/16 13:00 01/07/17 12:59 Timolol Maleate (Timoptic 0.5% Op Soln) 1 drop QHS BOTH EYES 12/08/16 21:00 01/07/17 20:59 12/08/16 21:49 Tolterodine Tartrate (Detrol) 4 mg TWICE A DAY ORAL 12/08/16 18:00 01/07/17 17:59 12/09/16 08:51 IVON JULIEN Dec 09, 2016 16:55
--- NOTE | 2016-12-09 17:39 | HX and Phyl Repo 2 Sig ---
DATE OF ADMISSION: 12/07/2016 HISTORY OF PRESENT ILLNESS: The patient is a delightful 76-year-old female, who initially presented to the office yesterday complaining of feeling not well. The patient had fever the night prior and paramedics were called in; however, when paramedics came, she was afebrile and was stable and was not taken. She went to the clinic to be seen; however, while in the clinic, she was noted to be diaphoretic and was nauseous, dizzy. Systolic blood pressure was in the 70s. Paramedics were then called in and she was taken to [facility] for further evaluation. She has past medical history significant for thrombocytosis and has been on Hydrea, history of osteoarthritis, degenerative joint disease, status post lumbar surgery, history of hypertension, GERD, and urinary insufficiency. She previously had a tooth infection for which she was taking amoxicillin for two weeks and had a recent leg surgery for removal of a Ya cyst. On evaluation at ED, she was still hypotensive, systolic 88. Laboratories showed urine infection, EKG, chest x-ray showed no acute process. CT of the brain was unremarkable. She had evidence of acute kidney injury and was given IV hydration. She was then admitted to telemetry for further evaluation and workup. CODE STATUS: Full code. ALLERGIES: Allergy to cortisone. PAST MEDICAL HISTORY: As stated above. PAST SURGICAL HISTORY: Significant for two back surgeries and a left hip replacement surgery. SOCIAL HISTORY: The patient is a nonalcoholic and nonsmoker. She has supportive family. The is at bedside. REVIEW OF SYSTEMS: Constitutional: She had fever. Denies chills. ENT: Denies blurring of vision. No diplopia. No eye pain. No nasal or ear discharge. Cardiovascular: Denies palpitations or chest pain. Respiratory: Denies cough, shortness of breath. Gastrointestinal: The patient had 1 episode of vomiting and has nausea. Genitourinary: Denies dysuria, but has frequency. Neurologic: Denies weakness, numbness, or paresthesia. Hematologic: Denies easy bleeding, easy bruising. PHYSICAL EXAMINATION: GENERAL APPEARANCE: The patient is awake, alert, but weak looking. VITAL SIGNS: Blood pressure 84/40, pulse 72, temperature 97.9, and 95% oxygen saturation on room air. HEENT: The patient is normocephalic. Anicteric sclerae. Pupils equally reactive to light. NECK: Supple. CARDIOVASCULAR: S1, S2. Regular rate and rhythm. RESPIRATORY: Lungs are clear with no use of accessory muscles of respiration. GASTROINTESTINAL: Abdomen is soft. Normoactive bowel sounds with slight tenderness on hypogastric area. EXTREMITIES: She has +1 edema on both lower extremities. NEUROLOGIC: Cranial II through XII are grossly intact. Moving all extremities. Motor strength 5/5 although gait is not assessed. SKIN: Warm and dry. No rashes. LABORATORY AND DIAGNOSTIC DATA: WBC 9.4, hemoglobin 9.5, hematocrit 26.9, and platelet is 249,000. Sodium 136, potassium 3.6, chloride 94, BUN 57, creatinine 2.1, glucose 125. Initial troponin was negative. BNP 3389. Albumin 3.4. Urine WBC 5-10, urine RBC 10-15, leukocyte esterase 3+ with 5+ occult blood. Chest x-ray and CT scan report done at ED, no official report yet. ASSESSMENT: 1. Urinary tract infection. 2. Acute kidney injury. 3. Possible sepsis with shock. 4. Dehydration. 5. Essential thrombocytosis. 6. Degenerative joint disease. 7. Osteoarthritis. 8. Hypertension, currently hypotensive. PLAN: The patient was admitted to telemetry for cardiac monitoring. We will check echocardiogram and venous duplex of lower extremity to rule out DVT. Continue IV hydration. We will advance diet as tolerated as there was no episode of vomiting overnight. We will continue on IV Rocephin pending culture results. Physical therapy evaluation starting tomorrow. Dr. Kenyon, cardiology consult; Dr. Figueroa, nephrology consult; Dr. Prieto, ID consult. Above findings and plans were discussed with supervising physician. Karen Blackwood M.D. Sheela Mcbride N.P. DR: Chay JOB#: [id number] CC: LIZ
[2016-12-09] MEDS: cefTRIAXone 1 GM in D5W 55 ML IVPB SCH (18:18)
--- NOTE | 2016-12-09 18:34 | Cardiology Report ---
APPROVED REPORT EKG Measurement Heart [id number] Normal sinus rhythm Possible Left atrial enlargement Borderline ECG
--- NOTE | 2016-12-09 19:58 | Cardiology Progress Note ---
Assessment/Plan Assessment/Plan hypotension volume and sepsis uti ecolis essential thrombocytosis on myelosuppressive therapy megaloblastic anemia back pain ivf ivabx bp over is better renal function seem plateaued likely atn echo normal lv systolic fxn mild diastolic dysfunction d/w d sachin Objective Last 24 Hour Vital Signs Date Time Temp Pulse Resp B/P Pulse Ox O2 Delivery O2 Flow Rate FiO2 12/09/16 19:26 97 Nasal Cannula 2.0 12/09/16 19:26 Nasal Cannula 2.0 12/09/16 19:24 75 18 Nasal Cannula 2.0 12/09/16 16:23 98.2 71 20 95/53 96 Room Air 12/09/16 16:00 72 12/09/16 15:30 74 111/54 12/09/16 12:00 68 12/09/16 11:57 67 18 97 Room Air 12/09/16 11:50 69 18 90 Room Air 12/09/16 11:50 69 18 Room Air 12/09/16 11:37 99.1 73 18 108/48 95 Room Air 12/09/16 08:00 71 12/09/16 07:45 97.2 71 18 103/53 95 Room Air 12/09/16 04:00 84 12/09/16 04:00 98.6 82 21 107/40 93 Room Air 12/09/16 00:00 98.0 83 21 103/40 96 Room Air 12/09/16 00:00 80 12/08/16 20:00 85 12/08/16 20:00 97.7 86 20 114/55 93 Room Air Intake and Output 12/08/16 12/09/16 19:00 07:00 Intake Total 1615.0 ml 1010.0 ml Output Total 600 ml 700 ml Balance 1015.0 ml 310.0 ml Intake Oral 1100 ml IV Total 515.0 ml 1010.0 ml Output Urine Total 600 ml 700 ml Laboratory Tests Test 12/08/16 20:00 12/09/16 05:30 Sodium Level 133 mEQ/L (135-145) L 139 mEQ/L (135-145) Potassium Level 3.4 mEQ/L (3.4-4.9) 3.1 mEQ/L (3.4-4.9) L Chloride Level 93 mEQ/L (98-107) L 98 mEQ/L (98-107) Carbon Dioxide Level 26 mEQ/L (20-30) 25 mEQ/L (20-30) Anion Gap 14 (5-15) 16 (5-15) H Blood Urea Nitrogen 60 mg/dL (7-23) H 58 mg/dL (7-23) H Creatinine 2.2 mg/dL (0.5-0.9) H 2.3 mg/dL (0.5-0.9) H Estimat Glomerular Filtration Rate mL/min (>60) mL/min (>60) Glucose Level 115 mg/dL (74-106) H 119 mg/dL (74-106) H Calcium Level 8.4 mg/dL (8.6-10.2) L 8.7 mg/dL (8.6-10.2) Total Bilirubin 0.3 mg/dL (0.0-1.2) 0.3 mg/dL (0.0-1.2) Aspartate Amino Transf (AST/SGOT) 25 U/L (5-40) 25 U/L (5-40) Alanine Aminotransferase (ALT/SGPT) 21 U/L (3-33) 19 U/L (3-33) Alkaline Phosphatase 49 U/L (35-104) 47 U/L (35-104) Total Protein 6.1 g/dL (6.6-8.7) L 5.8 g/dL (6.6-8.7) L Albumin 3.1 g/dL (3.5-5.2) L 2.9 g/dL (3.5-5.2) L Globulin 3.0 g/dL 2.9 g/dL Albumin/Globulin Ratio 1.0 (1.0-2.7) 1.0 (1.0-2.7) White Blood Count 4.8 K/UL (4.8-10.8) Red Blood Count 2.30 M/UL (4.20-5.40) L Hemoglobin 9.0 G/DL (12.0-16.0) L Hematocrit 27.5 % (37.0-47.0) L Mean Corpuscular Volume 120 FL (80-99) H Mean Corpuscular Hemoglobin 39.3 PG (27.0-31.0) H Mean Corpuscular Hemoglobin Concent 32.8 G/DL (32.0-36.0) Red Cell Distribution Width 12.3 % (11.6-14.8) Platelet Count 275 K/UL (150-450) Mean Platelet Volume 8.1 FL (6.5-10.1) Neutrophils (%) (Auto) % (45.0-75.0) Lymphocytes (%) (Auto) % (20.0-45.0) Monocytes (%) (Auto) % (1.0-10.0) Eosinophils (%) (Auto) % (0.0-3.0) Basophils (%) (Auto) % (0.0-2.0) Differential Total Cells Counted 100 Neutrophils % (Manual) 71 % (45-75) Lymphocytes % (Manual) 14 % (20-45) L Monocytes % (Manual) 10 % (1-10) Eosinophils % (Manual) 1 % (0-3) Basophils % (Manual) 0 % (0-2) Band Neutrophils 4 % (0-8) Platelet Estimate Adequate Platelet Morphology Normal Macrocytosis 2+ Urine Eosinophils None seen Hemoglobin A1c 4.7 % (< 6.0) Uric Acid 8.8 mg/dL (3.0-7.5) H Phosphorus Level 2.8 mg/dL (2.5-4.8) Magnesium Level 2.3 mg/dL (1.7-2.5) Gamma Glutamyl Transpeptidase 18 U/L (5-36) Troponin I < 0.30 ng/mL (<=0.30) C-Reactive Protein, Quantitative 25.6 mg/dL (< 0.5) H Pro-B-Type Natriuretic Peptide 2413 pg/mL (0-125) H Vitamin B12 Level 438 pg/mL (211-946) Thyroid Stimulating Hormone (TSH) 1.110 uIU/mL (0.300-4.500) Cortisol Pending Microbiology Date/Time Source Procedure Growth Status 12/07/16 17:30 Urine,Clean Catch Urine Culture - Final Escherichia Coli Complete EDI RAMIREZ Dec 09, 2016 19:58
--- NOTE | 2016-12-09 20:04 | General Progress Note ---
Assessment/Plan Assessment/Plan 76 y/o female admitted with UTI, generalized weakness, hypotension, acute kidney injury Assessment: -UTI(E. coli:) -Acute kidney injury -Generalized weakness -hypotension -anemia -essential thrombocytosis -constiaption\ -hx of lumbar fusion/DJD Plan: -zosyn dced by ID and pt on ceftriaxone 1 g daily -continue IV fluids per nephrology -montior BUN/creat -pt mobility -appreciate cardiolgy and nephorlogy input -continue all meds renally dosed -avoid nephrotoxic agents -bowel regiment -VTE pophylaxis Subjective Date patient seen: Dec 09, 2016 Time patient seen: 19:58 Constitutional: Reports: chills, diaphoresis, fever, malaise, no symptoms, other, weakness Respiratory: Reports: cough, shortness of breath Gastrointestinal/Abdominal: Reports: constipated Genitourinary: Reports: no symptoms Neurologic/Psychiatric: Reports: weakness Allergies: Coded Allergies: CORTISONE (Verified Allergy, Unknown, 12/07/16) Objective Last 24 Hour Vital Signs Date Time Temp Pulse Resp B/P Pulse Ox O2 Delivery O2 Flow Rate FiO2 12/09/16 19:26 97 Nasal Cannula 2.0 12/09/16 19:26 Nasal Cannula 2.0 12/09/16 19:24 75 18 Nasal Cannula 2.0 12/09/16 16:23 98.2 71 20 95/53 96 Room Air 12/09/16 16:00 72 12/09/16 15:30 74 111/54 12/09/16 12:00 68 12/09/16 11:57 67 18 97 Room Air 12/09/16 11:50 69 18 90 Room Air 12/09/16 11:50 69 18 Room Air 12/09/16 11:37 99.1 73 18 108/48 95 Room Air 12/09/16 08:00 71 12/09/16 07:45 97.2 71 18 103/53 95 Room Air 12/09/16 04:00 84 12/09/16 04:00 98.6 82 21 107/40 93 Room Air 12/09/16 00:00 98.0 83 21 103/40 96 Room Air 12/09/16 00:00 80 12/08/16 20:00 85 12/08/16 20:00 97.7 86 20 114/55 93 Room Air Intake and Output 12/08/16 12/09/16 19:00 07:00 Intake Total 1615.0 ml 1010.0 ml Output Total 600 ml 700 ml Balance 1015.0 ml 310.0 ml Intake Oral 1100 ml IV Total 515.0 ml 1010.0 ml Output Urine Total 600 ml 700 ml Laboratory Tests 12/08/16 20:00: Sodium Level 133L, Potassium Level 3.4, Chloride Level 93L, Carbon Dioxide Level 26, Anion Gap 14, Blood Urea Nitrogen 60H, Creatinine 2.2H, Estimat Glomerular Filtration Rate , Glucose Level 115H, Calcium Level 8.4L, Total Bilirubin 0.3, Aspartate Amino Transf (AST/SGOT) 25, Alanine Aminotransferase ( ALT/SGPT) 21, Alkaline Phosphatase 49, Total Protein 6.1L, Albumin 3.1L, Globulin 3.0, Albumin/Globulin Ratio 1.0 12/09/16 05:30: Sodium Level 139, Potassium Level 3.1L, Chloride Level 98, Carbon Dioxide Level 25, Anion Gap 16H, Blood Urea Nitrogen 58H, Creatinine 2.3H, Estimat Glomerular Filtration Rate , Glucose Level 119H, Calcium Level 8.7, Total Bilirubin 0.3, Aspartate Amino Transf (AST/SGOT) 25, Alanine Aminotransferase (ALT/SGPT) 19, Alkaline Phosphatase 47, Total Protein 5.8L, Albumin 2.9L, Globulin 2.9, Albumin /Globulin Ratio 1.0, White Blood Count 4.8, Red Blood Count 2.30L, Hemoglobin 9.0L, Hematocrit 27.5L, Mean Corpuscular Volume 120H, Mean Corpuscular Hemoglobin 39.3H, Mean Corpuscular Hemoglobin Concent 32.8, Red Cell Distribution Width 12.3, Platelet Count 275, Mean Platelet Volume 8.1, Neutrophils (%) (Auto) , Lymphocytes (%) (Auto) , Monocytes (%) (Auto) , Eosinophils (%) (Auto) , Basophils (%) (Auto) , Differential Total Cells Counted 100, Neutrophils % (Manual) 71, Lymphocytes % (Manual) 14L, Monocytes % (Manual) 10, Eosinophils % (Manual) 1, Basophils % (Manual) 0, Band Neutrophils 4, Platelet Estimate Adequate, Platelet Morphology Normal, Macrocytosis 2+, Urine Eosinophils None seen, Hemoglobin A1c 4.7, Uric Acid 8.8H, Phosphorus Level 2.8, Magnesium Level 2.3, Gamma Glutamyl Transpeptidase 18, Troponin I < 0.30, C-Reactive Protein, Quantitative 25.6H, Pro-B-Type Natriuretic Peptide 2413H, Vitamin B12 Level 438, Thyroid Stimulating Hormone (TSH) 1.110, Cortisol [Pending] Height (Feet): 5 Height (Inches): 5.00 Weight (Pounds): 185 General Appearance: WD/WN, no apparent distress EENT: PERRL/EOMI, normal ENT inspection Neck: non-tender, supple Cardiovascular: normal peripheral pulses, normal rate Respiratory/Chest: lungs clear, no accessory muscle use, rhonchi - right Abdomen: normal bowel sounds Extremities: normal range of motion Edema: 1+ Arm (R), 1+ Leg (L), 1+ Leg (R), 1+ Pedal (L), 1+ Pedal (R), 1+ Generalized Edema: mild edema 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
[2016-12-09] MEDS ORDERED: Miralax 17gm pkt ORAL SCH (21:00)
[2016-12-09] MEDS: Timolol 0.5% Op Soln 2.5ml BOTH EYES SCH (21:17)
[2016-12-10] VITALS: BP 112/54
[2016-12-10] MEDS: DuoNeb 0.5-3(2.5)mg/3ml neb HHN SCH ×4 (01:00→20:45)
[2016-12-10 04:00] VITALS: BP 115/60
[2016-12-10] MEDS: D5NS 1,000 ML IV SCH (06:45)
[2016-12-10 08:00] VITALS: BP 123/57
[2016-12-10 08:01] LABS: MEAN CORPUSCULAR HEMOGLOBIN 38.8 PG (27.0-31.0); MEAN CORPUSCULAR HGB CONC 32.3 G/DL (32.0-36.0); MEAN CORPUSCULAR VOLUME 120 FL (80-99); MEAN PLATELET VOLUME 8.2 FL (6.5-10.1); PLATELET COUNT 289 K/UL (150-450); RED BLOOD COUNT 2.23 M/UL (4.20-5.40); RED CELL DISTRIBUTION WIDTH 12.5 % (11.6-14.8); WHITE BLOOD COUNT 3.7 K/UL (4.8-10.8)
[2016-12-10 08:16] LABS: ALANINE AMINOTRANSFERASE 31 U/L (3-33); ALBUMIN/GLOBULIN RATIO 0.9 (1.0-2.7); ANION GAP 12 (5-15); ASPARTATE AMINO TRANSFERASE 31 U/L (5-40); CALCIUM 9.1 mg/dL (8.6-10.2); CARBON DIOXIDE 26 mEQ/L (20-30); CHLORIDE 103 mEQ/L (98-107); CREATININE 1.7 mg/dL (0.5-0.9); CRP QUANT 13.7 mg/dL (< 0.5); HEMOLYSIS 2; MAGNESIUM 2.3 mg/dL (1.7-2.5); PHOSPHORUS 3.5 mg/dL (2.5-4.8); POTASSIUM 3.8 mEQ/L (3.4-4.9); SODIUM 141 mEQ/L (135-145); TOTAL PROTEIN 5.7 g/dL (6.6-8.7); URIC ACID 7.3 mg/dL (3.0-7.5)
[2016-12-10] MEDS: FORTEO SUBQ SCH (08:33)
[2016-12-10] MEDS: Tolterodine 2mg tab ORAL SCH ×2 (08:34→18:19)
[2016-12-10] MEDS: Aspirin Baby 81mg ORAL SCH (08:34)
[2016-12-10] MEDS: Hydroxyurea 500mg cap ORAL SCH (08:35)
[2016-12-10] MEDS: Heparin 5000 units/ml inj SUBQ SCH ×2 (08:36→20:22)
[2016-12-10] MEDS ORDERED: D5NS 1000ml IV ONE (09:49)
[2016-12-10 10:23] LABS: BAND NEUTROPHILS % (MANUAL) 0 % (0-8); BASOPHILS % (MANUAL) 0 % (0-2); EOSINOPHILS % (MANUAL) 4 % (0-3); HYPOCHROMASIA 1+; LYMPHOCYTES % (MANUAL) 27 % (20-45); MACROCYTES 2+; NEUTROPHILS % (MANUAL) 55 % (45-75); PLATELET ESTIMATE ADEQUATE; PLATELET MORPHOLOGY NORMAL; TOTAL CELLS COUNTED 100
[2016-12-10 12:00] VITALS: BP 126/57
--- NOTE | 2016-12-10 14:42 | General Progress Note ---
Assessment/Plan Status: stable Status Narrative Cr lower 1.7 Assessment/Plan status: Acute renal failure- Mainly PreRenal due to diuretics, ? Underlying CKD ? 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 There is no hydronephrosis. There is a slightly prominent left renal pelvis. Subjective ROS Limited/Unobtainable: No Constitutional: Reports: malaise Allergies: Coded Allergies: CORTISONE (Verified Allergy, Unknown, 12/07/16) Objective Last 24 Hour Vital Signs Date Time Temp Pulse Resp B/P Pulse Ox O2 Delivery O2 Flow Rate FiO2 12/10/16 13:13 Nasal Cannula 12/10/16 13:13 Nasal Cannula 12/10/16 12:00 98.2 74 20 126/57 96 Room Air 12/10/16 08:00 98.2 83 22 123/57 93 Nasal Cannula 12/10/16 07:45 75 18 99 Nasal Cannula 2.0 12/10/16 07:33 72 18 Room Air 12/10/16 07:33 28 12/10/16 07:33 72 18 96 Nasal Cannula 2.0 28 12/10/16 07:33 97 Nasal Cannula 2.0 12/10/16 07:33 Nasal Cannula 2.0 28 12/10/16 04:00 98.1 74 18 115/60 100 Nasal Cannula 2.0 12/10/16 04:00 71 12/10/16 01:06 73 18 100 Nasal Cannula 2.0 12/10/16 01:03 86 18 98 Nasal Cannula 2.0 12/10/16 00:00 77 12/10/16 00:00 97.9 75 18 112/54 100 Nasal Cannula 3.0 12/09/16 20:18 78 18 100 Nasal Cannula 3.0 12/09/16 20:17 77 18 97 Nasal Cannula 3.0 12/09/16 20:00 91 12/09/16 20:00 97.9 76 20 119/56 99 Nasal Cannula 2.0 12/09/16 19:26 97 Nasal Cannula 2.0 12/09/16 19:26 Nasal Cannula 2.0 12/09/16 19:24 75 18 Nasal Cannula 2.0 12/09/16 16:23 98.2 71 20 95/53 96 Room Air 12/09/16 16:00 72 12/09/16 15:30 74 111/54 Intake and Output 12/09/16 12/10/16 19:00 07:00 Intake Total 360 ml 875 ml Output Total 700 ml 1400 ml Balance -340 ml -525 ml Intake Oral 360 ml IV Total 875 ml Output Urine Total 700 ml 1400 ml Laboratory Tests 12/10/16 04:30: Urine Eosinophils None seen 12/10/16 07:35: White Blood Count 3.7L, Red Blood Count 2.23L, Hemoglobin 8.6L, Hematocrit 26.7L , Mean Corpuscular Volume 120H, Mean Corpuscular Hemoglobin 38.8H, Mean Corpuscular Hemoglobin Concent 32.3, Red Cell Distribution Width 12.5, Platelet Count 289, Mean Platelet Volume 8.2, Neutrophils (%) (Auto) , Lymphocytes (%) ( Auto) , Monocytes (%) (Auto) , Eosinophils (%) (Auto) , Basophils (%) (Auto) , Differential Total Cells Counted 100, Neutrophils % (Manual) 55, Lymphocytes % ( Manual) 27, Monocytes % (Manual) 14H, Eosinophils % (Manual) 4H, Basophils % ( Manual) 0, Band Neutrophils 0, Platelet Estimate Adequate, Platelet Morphology Normal, Hypochromasia 1+, Macrocytosis 2+, Sodium Level 141, Potassium Level 3.8 , Chloride Level 103, Carbon Dioxide Level 26, Anion Gap 12, Blood Urea Nitrogen 44H, Creatinine 1.7H, Estimat Glomerular Filtration Rate , Glucose Level 122H, Uric Acid 7.3, Calcium Level 9.1, Phosphorus Level 3.5, Magnesium Level 2.3, Total Bilirubin 0.3, Aspartate Amino Transf (AST/SGOT) 31, Alanine Aminotransferase (ALT/SGPT) 31, Alkaline Phosphatase 58, C-Reactive Protein, Quantitative 13.7H, Pro-B-Type Natriuretic Peptide 864H, Total Protein 5.7L, Albumin 2.8L, Globulin 2.9, Albumin/Globulin Ratio 0.9L Height (Feet): 5 Height (Inches): 5.00 Weight (Pounds): 192 General Appearance: no apparent distress Objective other PE not changed MARIA ESTHER BALDWIN Dec 10, 2016 14:42
--- NOTE | 2016-12-10 15:11 | Infectious Diseases Prog Note ---
Assessment/Plan Assessment/Plan A: E. coli UTI Acute renal failure Anemia P; continue Rocephin Subjective ROS Limited/Unobtainable: No Respiratory: Reports: dry cough Cardiovascular: Reports: no symptoms Gastrointestinal/Abdominal: Reports: no symptoms Musculoskeletal: Reports: other - generalized, pain Allergies: Coded Allergies: CORTISONE (Verified Allergy, Unknown, 12/07/16) Objective Vital Signs Last 24 Hour Vital Signs Date Time Temp Pulse Resp B/P Pulse Ox O2 Delivery O2 Flow Rate FiO2 12/10/16 13:13 Nasal Cannula 12/10/16 13:13 Nasal Cannula 12/10/16 12:00 98.2 74 20 126/57 96 Room Air 12/10/16 08:00 98.2 83 22 123/57 93 Nasal Cannula 12/10/16 07:45 75 18 99 Nasal Cannula 2.0 12/10/16 07:33 72 18 Room Air 12/10/16 07:33 28 12/10/16 07:33 72 18 96 Nasal Cannula 2.0 28 12/10/16 07:33 97 Nasal Cannula 2.0 12/10/16 07:33 Nasal Cannula 2.0 28 12/10/16 04:00 98.1 74 18 115/60 100 Nasal Cannula 2.0 12/10/16 04:00 71 12/10/16 01:06 73 18 100 Nasal Cannula 2.0 12/10/16 01:03 86 18 98 Nasal Cannula 2.0 12/10/16 00:00 77 12/10/16 00:00 97.9 75 18 112/54 100 Nasal Cannula 3.0 12/09/16 20:18 78 18 100 Nasal Cannula 3.0 12/09/16 20:17 77 18 97 Nasal Cannula 3.0 12/09/16 20:00 91 12/09/16 20:00 97.9 76 20 119/56 99 Nasal Cannula 2.0 12/09/16 19:26 97 Nasal Cannula 2.0 12/09/16 19:26 Nasal Cannula 2.0 12/09/16 19:24 75 18 Nasal Cannula 2.0 12/09/16 16:23 98.2 71 20 95/53 96 Room Air 12/09/16 16:00 72 12/09/16 15:30 74 111/54 Height (Feet): 5 Height (Inches): 5.00 Weight (Pounds): 192 General Appearance: no acute distress HEENT: mucous membranes moist Respiratory/Chest: lungs clear Cardiovascular: normal rate Abdomen: soft, non tender Extremities: other - nonpitting edema Neurologic/Psychiatric: alert, oriented x 3, responsive Microbiology Date/Time Source Procedure Growth Status 12/08/16 05:30 Blood Blood Culture - Preliminary NO GROWTH AFTER 24 HOURS Resulted 12/08/16 05:15 Blood Blood Culture - Preliminary NO GROWTH AFTER 24 HOURS Resulted 12/07/16 17:30 Urine,Clean Catch Urine Culture - Final Escherichia Coli Complete Laboratory Tests Test 12/10/16 04:30 12/10/16 07:35 Urine Eosinophils None seen White Blood Count 3.7 K/UL (4.8-10.8) L Red Blood Count 2.23 M/UL (4.20-5.40) L Hemoglobin 8.6 G/DL (12.0-16.0) L Hematocrit 26.7 % (37.0-47.0) L Mean Corpuscular Volume 120 FL (80-99) H Mean Corpuscular Hemoglobin 38.8 PG (27.0-31.0) H Mean Corpuscular Hemoglobin Concent 32.3 G/DL (32.0-36.0) Red Cell Distribution Width 12.5 % (11.6-14.8) Platelet Count 289 K/UL (150-450) Mean Platelet Volume 8.2 FL (6.5-10.1) Neutrophils (%) (Auto) % (45.0-75.0) Lymphocytes (%) (Auto) % (20.0-45.0) Monocytes (%) (Auto) % (1.0-10.0) Eosinophils (%) (Auto) % (0.0-3.0) Basophils (%) (Auto) % (0.0-2.0) Differential Total Cells Counted 100 Neutrophils % (Manual) 55 % (45-75) Lymphocytes % (Manual) 27 % (20-45) Monocytes % (Manual) 14 % (1-10) H Eosinophils % (Manual) 4 % (0-3) H Basophils % (Manual) 0 % (0-2) Band Neutrophils 0 % (0-8) Platelet Estimate Adequate Platelet Morphology Normal Hypochromasia 1+ Macrocytosis 2+ Sodium Level 141 mEQ/L (135-145) Potassium Level 3.8 mEQ/L (3.4-4.9) Chloride Level 103 mEQ/L (98-107) Carbon Dioxide Level 26 mEQ/L (20-30) Anion Gap 12 (5-15) Blood Urea Nitrogen 44 mg/dL (7-23) H Creatinine 1.7 mg/dL (0.5-0.9) H Estimat Glomerular Filtration Rate mL/min (>60) Glucose Level 122 mg/dL (74-106) H Uric Acid 7.3 mg/dL (3.0-7.5) Calcium Level 9.1 mg/dL (8.6-10.2) Phosphorus Level 3.5 mg/dL (2.5-4.8) Magnesium Level 2.3 mg/dL (1.7-2.5) Total Bilirubin 0.3 mg/dL (0.0-1.2) Aspartate Amino Transf (AST/SGOT) 31 U/L (5-40) Alanine Aminotransferase (ALT/SGPT) 31 U/L (3-33) Alkaline Phosphatase 58 U/L (35-104) C-Reactive Protein, Quantitative 13.7 mg/dL (< 0.5) H Pro-B-Type Natriuretic Peptide 864 pg/mL (0-125) H Total Protein 5.7 g/dL (6.6-8.7) L Albumin 2.8 g/dL (3.5-5.2) L Globulin 2.9 g/dL Albumin/Globulin Ratio 0.9 (1.0-2.7) L Current Medications Medications (Trade) Dose Ordered Sig/Rhiannon Route PRN Reason Start Time Stop Time Status Last Admin Dose Admin Acetaminophen (Tylenol) 650 mg Q6H PRN ORAL Mild Pain/Temp > 100.5 12/08/16 00:30 01/07/17 00:29 12/08/16 06:07 Albuterol/ Ipratropium (DuoNeb 0.5-3(2.5)mg/3ml) 3 ml Q4H PRN HHN Shortness of Breath 12/09/16 10:30 12/14/16 10:29 12/09/16 20:17 Albuterol/ Ipratropium (DuoNeb 0.5-3(2.5)mg/3ml) 3 ml Q6HRT HHN 12/10/16 01:00 12/15/16 00:59 12/10/16 07:33 Aspirin (ASA) 81 mg DAILY ORAL 12/08/16 12:00 01/07/17 11:59 12/10/16 08:34 Ceftriaxone Sodium/Dextrose (Rocephin/D5W) 55 ml @ 110 mls/hr Q24H IVPB 12/09/16 19:00 12/16/16 18:59 12/09/16 18:18 Gabapentin (Neurontin) 300 mg THREE TIMES A DAY ORAL 12/08/16 13:00 01/07/17 12:59 12/10/16 14:14 Heparin Sodium (Porcine) (Heparin 5000 units/ml) 5,000 units EVERY 12 HOURS SUBQ 12/08/16 09:00 01/07/17 08:59 12/10/16 08:36 Hydroxyurea (Hydrea) 500 mg DAILY ORAL 12/08/16 18:00 12/13/16 17:59 12/10/16 08:35 Lidocaine (Lidoderm 5% PATCH) 1 patch DAILY TDERMAL 12/08/16 12:00 01/07/17 11:59 12/10/16 08:34 Patient Own Medication 20 ea 20 ea DAILY SUBQ 12/09/16 13:30 01/08/17 13:29 12/10/16 08:33 Polyethylene Glycol (Miralax) 17 gm BEDTIME ORAL 12/09/16 21:00 01/08/17 20:59 12/09/16 21:16 Ranitidine HCl 150 mg 150 mg BEDTIME ORAL 12/08/16 21:00 01/07/17 20:59 12/09/16 21:16 Sodium Chloride (NS) 500 ml @ 999 mls/hr DAILY PRN IVPB HYPOTESNSION 12/08/16 13:00 01/07/17 12:59 Timolol Maleate (Timoptic 0.5% Op Soln) 1 drop QHS BOTH EYES 12/08/16 21:00 01/07/17 20:59 12/09/16 21:17 Tolterodine Tartrate (Detrol) 4 mg TWICE A DAY ORAL 12/08/16 18:00 01/07/17 17:59 12/10/16 08:34 IVON JULIEN Dec 10, 2016 15:11
[2016-12-10 15:53] VITALS: BP 125/61
[2016-12-10] MEDS: cefTRIAXone 1 GM in D5W 55 ML IVPB SCH (18:20)
[2016-12-10] MEDS: guaiFENesin DM 100mg/5ml ORAL PRN (18:20)
--- NOTE | 2016-12-10 19:17 | General Progress Note ---
Assessment/Plan Assessment/Plan 76 y/o female admitted with UTI, generalized weakness, hypotension, acute kidney injury Assessment: -UTI(E. coli:) -Acute kidney injury -Generalized weakness -hypotension -anemia -essential thrombocytosis -constiaption\ -hx of lumbar fusion/DJD -fluid overload? Plan: -zosyn dced by ID and pt on ceftriaxone 1 g daily -dc IV fluids per nephrology -montior BUN/creat -pt mobility -appreciate cardiolgy and nephorlogy input -continue all meds renally dosed -avoid nephrotoxic agents -bowel regiment -VTE pophylaxis -add pericolace bid -will start home lasix 20 mg daily for now -chest xray to evaluate for hf -increase Miralax to bid -ambulate pt mobility discussed with nurse Subjective Date patient seen: Dec 10, 2016 Time patient seen: 19:13 Respiratory: Reports: cough, shortness of breath Allergies: Coded Allergies: CORTISONE (Verified Allergy, Unknown, 12/07/16) Objective Last 24 Hour Vital Signs Date Time Temp Pulse Resp B/P Pulse Ox O2 Delivery O2 Flow Rate FiO2 12/10/16 16:00 74 12/10/16 15:53 97.0 78 20 125/61 96 Room Air 12/10/16 13:13 Nasal Cannula 12/10/16 13:13 Nasal Cannula 12/10/16 12:00 98.2 74 20 126/57 96 Room Air 12/10/16 12:00 78 12/10/16 08:00 71 12/10/16 08:00 98.2 83 22 123/57 93 Nasal Cannula 12/10/16 07:45 75 18 99 Nasal Cannula 2.0 12/10/16 07:33 72 18 Room Air 12/10/16 07:33 28 12/10/16 07:33 72 18 96 Nasal Cannula 2.0 28 12/10/16 07:33 97 Nasal Cannula 2.0 12/10/16 07:33 Nasal Cannula 2.0 28 12/10/16 04:00 98.1 74 18 115/60 100 Nasal Cannula 2.0 12/10/16 04:00 71 12/10/16 01:06 73 18 100 Nasal Cannula 2.0 12/10/16 01:03 86 18 98 Nasal Cannula 2.0 12/10/16 00:00 77 12/10/16 00:00 97.9 75 18 112/54 100 Nasal Cannula 3.0 12/09/16 20:18 78 18 100 Nasal Cannula 3.0 12/09/16 20:17 77 18 97 Nasal Cannula 3.0 12/09/16 20:00 91 12/09/16 20:00 97.9 76 20 119/56 99 Nasal Cannula 2.0 12/09/16 19:26 97 Nasal Cannula 2.0 12/09/16 19:26 Nasal Cannula 2.0 12/09/16 19:24 75 18 Nasal Cannula 2.0 Intake and Output 12/09/16 12/10/16 19:00 07:00 Intake Total 360 ml 875 ml Output Total 700 ml 1400 ml Balance -340 ml -525 ml Intake Oral 360 ml IV Total 875 ml Output Urine Total 700 ml 1400 ml Laboratory Tests 12/10/16 04:30: Urine Eosinophils None seen 12/10/16 07:35: White Blood Count 3.7L, Red Blood Count 2.23L, Hemoglobin 8.6L, Hematocrit 26.7L , Mean Corpuscular Volume 120H, Mean Corpuscular Hemoglobin 38.8H, Mean Corpuscular Hemoglobin Concent 32.3, Red Cell Distribution Width 12.5, Platelet Count 289, Mean Platelet Volume 8.2, Neutrophils (%) (Auto) , Lymphocytes (%) ( Auto) , Monocytes (%) (Auto) , Eosinophils (%) (Auto) , Basophils (%) (Auto) , Differential Total Cells Counted 100, Neutrophils % (Manual) 55, Lymphocytes % ( Manual) 27, Monocytes % (Manual) 14H, Eosinophils % (Manual) 4H, Basophils % ( Manual) 0, Band Neutrophils 0, Platelet Estimate Adequate, Platelet Morphology Normal, Hypochromasia 1+, Macrocytosis 2+, Sodium Level 141, Potassium Level 3.8 , Chloride Level 103, Carbon Dioxide Level 26, Anion Gap 12, Blood Urea Nitrogen 44H, Creatinine 1.7H, Estimat Glomerular Filtration Rate , Glucose Level 122H, Uric Acid 7.3, Calcium Level 9.1, Phosphorus Level 3.5, Magnesium Level 2.3, Total Bilirubin 0.3, Aspartate Amino Transf (AST/SGOT) 31, Alanine Aminotransferase (ALT/SGPT) 31, Alkaline Phosphatase 58, C-Reactive Protein, Quantitative 13.7H, Pro-B-Type Natriuretic Peptide 864H, Total Protein 5.7L, Albumin 2.8L, Globulin 2.9, Albumin/Globulin Ratio 0.9L Height (Feet): 5 Height (Inches): 5.00 Weight (Pounds): 192 General Appearance: WD/WN, mild distress EENT: PERRL/EOMI Neck: non-tender Cardiovascular: normal peripheral pulses, normal rate Respiratory/Chest: expiratory wheezing Abdomen: normal bowel sounds Extremities: swelling Edema: no edema noted Arm (L), no edema noted Arm (R), 1+ Leg (L), 1+ Leg (R), 1+ Pedal (L), 1+ Pedal (R), 1+ Generalized Edema: mild edema Neurologic: lens inserter II-XII grossly normal, alert, oriented x 3, responsive Skin: normal pigmentation Lymphatic: normal anterior cervical (L), normal anterior cervical (R), normal axillary (L), normal axillary (R), normal inguinal (L), normal inguinal (R), normal other, normal posterior cervical (L), normal posterior cervical (R), normal submandibular (L), normal submandibular (R), normal supraclavicular (L), normal supraclavicular (R) Karen Blackwood MD Dec 10, 2016 19:17
[2016-12-10 20:00] VITALS: BP 131/68
--- NOTE | 2016-12-10 20:10 | Cardiology Progress Note ---
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 megaloblastic anemia back pain ivf ivabx bp is better renal function seemimproved likely atn echo normal lv systolic fxn mild diastolic dysfunction d/w dr josy sullivan Subjective Cardiovascular: Denies: chest pain, palpitations Respiratory: Denies: shortness of breath Genitourinary: Reports: other - discomfort from foey Objective Last 24 Hour Vital Signs Date Time Temp Pulse Resp B/P Pulse Ox O2 Delivery O2 Flow Rate FiO2 12/10/16 16:00 74 12/10/16 15:53 97.0 78 20 125/61 96 Room Air 12/10/16 13:13 Nasal Cannula 12/10/16 13:13 Nasal Cannula 12/10/16 12:00 98.2 74 20 126/57 96 Room Air 12/10/16 12:00 78 12/10/16 08:00 71 12/10/16 08:00 98.2 83 22 123/57 93 Nasal Cannula 12/10/16 07:45 75 18 99 Nasal Cannula 2.0 12/10/16 07:33 72 18 Room Air 12/10/16 07:33 28 12/10/16 07:33 72 18 96 Nasal Cannula 2.0 28 12/10/16 07:33 97 Nasal Cannula 2.0 12/10/16 07:33 Nasal Cannula 2.0 28 12/10/16 04:00 98.1 74 18 115/60 100 Nasal Cannula 2.0 12/10/16 04:00 71 12/10/16 01:06 73 18 100 Nasal Cannula 2.0 12/10/16 01:03 86 18 98 Nasal Cannula 2.0 12/10/16 00:00 77 12/10/16 00:00 97.9 75 18 112/54 100 Nasal Cannula 3.0 12/09/16 20:18 78 18 100 Nasal Cannula 3.0 12/09/16 20:17 77 18 97 Nasal Cannula 3.0 General Appearance: no apparent distress, alert Neck: supple Cardiovascular: normal rate, regular rhythm Respiratory/Chest: lungs clear Abdomen: normal bowel sounds, non tender, soft Extremities: no swelling Intake and Output 12/09/16 12/10/16 19:00 07:00 Intake Total 360 ml 875 ml Output Total 700 ml 1400 ml Balance -340 ml -525 ml Intake Oral 360 ml IV Total 875 ml Output Urine Total 700 ml 1400 ml Laboratory Tests Test 12/10/16 04:30 12/10/16 07:35 Urine Eosinophils None seen White Blood Count 3.7 K/UL (4.8-10.8) L Red Blood Count 2.23 M/UL (4.20-5.40) L Hemoglobin 8.6 G/DL (12.0-16.0) L Hematocrit 26.7 % (37.0-47.0) L Mean Corpuscular Volume 120 FL (80-99) H Mean Corpuscular Hemoglobin 38.8 PG (27.0-31.0) H Mean Corpuscular Hemoglobin Concent 32.3 G/DL (32.0-36.0) Red Cell Distribution Width 12.5 % (11.6-14.8) Platelet Count 289 K/UL (150-450) Mean Platelet Volume 8.2 FL (6.5-10.1) Neutrophils (%) (Auto) % (45.0-75.0) Lymphocytes (%) (Auto) % (20.0-45.0) Monocytes (%) (Auto) % (1.0-10.0) Eosinophils (%) (Auto) % (0.0-3.0) Basophils (%) (Auto) % (0.0-2.0) Differential Total Cells Counted 100 Neutrophils % (Manual) 55 % (45-75) Lymphocytes % (Manual) 27 % (20-45) Monocytes % (Manual) 14 % (1-10) H Eosinophils % (Manual) 4 % (0-3) H Basophils % (Manual) 0 % (0-2) Band Neutrophils 0 % (0-8) Platelet Estimate Adequate Platelet Morphology Normal Hypochromasia 1+ Macrocytosis 2+ Sodium Level 141 mEQ/L (135-145) Potassium Level 3.8 mEQ/L (3.4-4.9) Chloride Level 103 mEQ/L (98-107) Carbon Dioxide Level 26 mEQ/L (20-30) Anion Gap 12 (5-15) Blood Urea Nitrogen 44 mg/dL (7-23) H Creatinine 1.7 mg/dL (0.5-0.9) H Estimat Glomerular Filtration Rate mL/min (>60) Glucose Level 122 mg/dL (74-106) H Uric Acid 7.3 mg/dL (3.0-7.5) Calcium Level 9.1 mg/dL (8.6-10.2) Phosphorus Level 3.5 mg/dL (2.5-4.8) Magnesium Level 2.3 mg/dL (1.7-2.5) Total Bilirubin 0.3 mg/dL (0.0-1.2) Aspartate Amino Transf (AST/SGOT) 31 U/L (5-40) Alanine Aminotransferase (ALT/SGPT) 31 U/L (3-33) Alkaline Phosphatase 58 U/L (35-104) C-Reactive Protein, Quantitative 13.7 mg/dL (< 0.5) H Pro-B-Type Natriuretic Peptide 864 pg/mL (0-125) H Total Protein 5.7 g/dL (6.6-8.7) L Albumin 2.8 g/dL (3.5-5.2) L Globulin 2.9 g/dL Albumin/Globulin Ratio 0.9 (1.0-2.7) L Microbiology Date/Time Source Procedure Growth Status 12/08/16 05:30 Blood Blood Culture - Preliminary NO GROWTH AFTER 24 HOURS Resulted 12/08/16 05:15 Blood Blood Culture - Preliminary NO GROWTH AFTER 24 HOURS Resulted EDI RAMIREZ Dec 10, 2016 20:10
[2016-12-10] MEDS: Pericolace tab ORAL SCH (20:20)
[2016-12-10] MEDS: Timolol 0.5% Op Soln 2.5ml BOTH EYES SCH (20:20)
--- NOTE | 2016-12-10 23:07 | Diagnostic Imaging Report ---
APPROVED REPORT CPT Code: 02333 Present Symptoms Shortness of breath BILATERAL: Imaging reveals a patent deep venous system bilaterally. There is no evidence of thrombus within the femoral, popliteal or tibial segments. The greater saphenous veins are also within normal limits. Doppler indicates normal spontaneous flow within these segments.
[2016-12-11 00:22] VITALS: BP 109/55
[2016-12-11] MEDS: DuoNeb 0.5-3(2.5)mg/3ml neb HHN SCH ×3 (01:42→13:35)
[2016-12-11 04:05] VITALS: BP 122/84
[2016-12-11 08:00] LABS: MEAN CORPUSCULAR HEMOGLOBIN 39.1 PG (27.0-31.0); MEAN CORPUSCULAR HGB CONC 32.5 G/DL (32.0-36.0); MEAN CORPUSCULAR VOLUME 120 FL (80-99); MEAN PLATELET VOLUME 8.1 FL (6.5-10.1); PLATELET COUNT 322 K/UL (150-450); RED BLOOD COUNT 2.34 M/UL (4.20-5.40); WHITE BLOOD COUNT 4.8 K/UL (4.8-10.8)
[2016-12-11 08:11] VITALS: BP 132/65
[2016-12-11 08:37] LABS: ANION GAP 13 (5-15); CALCIUM 10.3 mg/dL (8.6-10.2); CARBON DIOXIDE 27 mEQ/L (20-30); CHLORIDE 103 mEQ/L (98-107); CREATININE 1.3 mg/dL (0.5-0.9); HEMOLYSIS 7; POTASSIUM 4.4 mEQ/L (3.4-4.9); SODIUM 143 mEQ/L (135-145)
[2016-12-11] MEDS: Miralax 17gm pkt ORAL SCH ×2 (09:52→18:28)
[2016-12-11] MEDS: Pericolace tab ORAL SCH ×2 (09:54→18:28)
[2016-12-11] MEDS: FORTEO SUBQ SCH (09:54)
[2016-12-11] MEDS: Tolterodine 2mg tab ORAL SCH ×2 (09:54→18:28)
[2016-12-11] MEDS: Hydroxyurea 500mg cap ORAL SCH (09:55)
[2016-12-11] MEDS: Aspirin Baby 81mg ORAL SCH (09:55)
[2016-12-11] MEDS: Heparin 5000 units/ml inj SUBQ SCH ×2 (09:56→21:34)
--- NOTE | 2016-12-11 10:10 | General Progress Note ---
Assessment/Plan Status: stable - from renal stand Status Narrative Cr down 1.3 Assessment/Plan status: Acute renal failure- Mainly PreRenal due to diuretics, ? Underlying CKD ? Hypotension UTI- Left base Atx h/o HTN on Volsartan and Lopressor [employer] Thrombocytosis on HydroxyUrea Plan: stop IV DC sullivan Watch for CHF Sx Monitor renal parameters- Gastric support per orders ? DC Both kidneys demonstrate normal echogenicity. There is no hydronephrosis. There is a slightly prominent left renal pelvis. Subjective ROS Limited/Unobtainable: No Allergies: Coded Allergies: CORTISONE (Verified Allergy, Unknown, 12/07/16) Objective Last 24 Hour Vital Signs Date Time Temp Pulse Resp B/P Pulse Ox O2 Delivery O2 Flow Rate FiO2 12/11/16 08:49 77 18 98 Room Air 21 12/11/16 08:39 21 12/11/16 08:38 Room Air 12/11/16 08:38 76 18 97 Room Air 21 12/11/16 08:38 97 Room Air 12/11/16 08:11 99.3 75 18 132/65 95 Room Air 12/11/16 04:05 98.1 77 18 122/84 95 Room Air 12/11/16 04:00 72 12/11/16 01:53 74 18 97 Room Air 21 12/11/16 01:43 21 12/11/16 01:43 72 18 94 Room Air 21 12/11/16 00:22 98.6 74 19 109/55 98 Room Air 12/11/16 00:00 72 12/10/16 20:47 Room Air 12/10/16 20:46 96 Room Air 12/10/16 20:35 80 18 98 Room Air 21 12/10/16 20:25 21 12/10/16 20:25 79 20 96 Room Air 21 12/10/16 20:00 98.8 78 18 131/68 95 Room Air 12/10/16 20:00 77 12/10/16 19:34 98.6 12/10/16 16:00 74 12/10/16 15:53 97.0 78 20 125/61 96 Room Air 12/10/16 13:13 Nasal Cannula 12/10/16 13:13 Nasal Cannula 12/10/16 12:00 98.2 74 20 126/57 96 Room Air 12/10/16 12:00 78 Intake and Output 12/10/16 12/11/16 19:00 07:00 Intake Total 750 ml Balance 750 ml Intake Oral 750 ml # Voids 3 Laboratory Tests 12/11/16 00:00: Urine Eosinophils None seen 12/11/16 06:25: White Blood Count 4.8, Red Blood Count 2.34L, Hemoglobin 9.1L, Hematocrit 28.1L , Mean Corpuscular Volume 120H, Mean Corpuscular Hemoglobin 39.1H, Mean Corpuscular Hemoglobin Concent 32.5, Red Cell Distribution Width 13.0, Platelet Count 322, Mean Platelet Volume 8.1, Neutrophils (%) (Auto) , Lymphocytes (%) ( Auto) , Monocytes (%) (Auto) , Eosinophils (%) (Auto) , Basophils (%) (Auto) , Neutrophils % (Manual) [Pending], Lymphocytes % (Manual) [Pending], Platelet Estimate [Pending], Platelet Morphology [Pending], Sodium Level 143, Potassium Level 4.4, Chloride Level 103, Carbon Dioxide Level 27, Anion Gap 13, Blood Urea Nitrogen 33H, Creatinine 1.3H, Estimat Glomerular Filtration Rate , Glucose Level 105, Calcium Level 10.3H, Pro-B-Type Natriuretic Peptide 1746H Height (Feet): 5 Height (Inches): 5.00 Weight (Pounds): 195 General Appearance: no apparent distress Objective other PE not changed MARIA ESTHER BALDWIN Dec 11, 2016 10:10
--- NOTE | 2016-12-11 10:18 | Diagnostic Imaging Report ---
Indication: COUGH Technique: One view of the chest Comparison: 12/09/2016 Findings: Calcified granuloma again demonstrated the right lung base. Atelectasis or scarring at the left lung base is again demonstrated. Heart size is upper limits of normal. There is no significant change Impression: Unchanged, over one day, findings as above.
[2016-12-11 10:34] LABS: BASOPHILS % (MANUAL) 1 % (0-2); EOSINOPHILS % (MANUAL) 4 % (0-3); LYMPHOCYTES % (MANUAL) 27 % (20-45); NEUTROPHILS % (MANUAL) 55 % (45-75); TOTAL CELLS COUNTED 100
[2016-12-11 10:35] LABS: BAND NEUTROPHILS % (MANUAL) 0 % (0-8); HYPOCHROMASIA 2+; PLATELET ESTIMATE ADEQUATE; PLATELET MORPHOLOGY NORMAL
[2016-12-11 10:36] LABS: ANISOCYTOSIS 1+; MACROCYTES 3+
--- NOTE | 2016-12-11 11:13 | Infectious Diseases Prog Note ---
Assessment/Plan Assessment/Plan antibiotics : ceftriaxone A 1. e.coli UTI 2. renal failure improving 3. thrombocytosis P 1. continue ceftriaxone 2 more days 2. will follow up cultures Subjective Constitutional: Denies: chills, fever Respiratory: Reports: dry cough, shortness of breath Gastrointestinal/Abdominal: Denies: diarrhea, nausea, vomiting Musculoskeletal: Reports: pain Allergies: Coded Allergies: CORTISONE (Verified Allergy, Unknown, 12/07/16) Objective Vital Signs Last 24 Hour Vital Signs Date Time Temp Pulse Resp B/P Pulse Ox O2 Delivery O2 Flow Rate FiO2 12/11/16 08:49 77 18 98 Room Air 21 12/11/16 08:39 21 12/11/16 08:38 Room Air 12/11/16 08:38 76 18 97 Room Air 21 12/11/16 08:38 97 Room Air 12/11/16 08:11 99.3 75 18 132/65 95 Room Air 12/11/16 08:00 72 12/11/16 04:05 98.1 77 18 122/84 95 Room Air 12/11/16 04:00 72 12/11/16 01:53 74 18 97 Room Air 21 12/11/16 01:43 21 12/11/16 01:43 72 18 94 Room Air 21 12/11/16 00:22 98.6 74 19 109/55 98 Room Air 12/11/16 00:00 72 12/10/16 20:47 Room Air 12/10/16 20:46 96 Room Air 12/10/16 20:35 80 18 98 Room Air 21 12/10/16 20:25 21 12/10/16 20:25 79 20 96 Room Air 21 12/10/16 20:00 98.8 78 18 131/68 95 Room Air 12/10/16 20:00 77 12/10/16 19:34 98.6 12/10/16 16:00 74 12/10/16 15:53 97.0 78 20 125/61 96 Room Air 12/10/16 13:13 Nasal Cannula 12/10/16 13:13 Nasal Cannula 12/10/16 12:00 98.2 74 20 126/57 96 Room Air 12/10/16 12:00 78 Height (Feet): 5 Height (Inches): 5.00 Weight (Pounds): 195 Respiratory/Chest: lungs clear Cardiovascular: normal rate, regular rhythm, no gallop/murmur Abdomen: soft, non tender Extremities: other - + edema Laboratory Tests Test 12/11/16 00:00 12/11/16 06:25 Urine Eosinophils None seen White Blood Count 4.8 K/UL (4.8-10.8) Red Blood Count 2.34 M/UL (4.20-5.40) L Hemoglobin 9.1 G/DL (12.0-16.0) L Hematocrit 28.1 % (37.0-47.0) L Mean Corpuscular Volume 120 FL (80-99) H Mean Corpuscular Hemoglobin 39.1 PG (27.0-31.0) H Mean Corpuscular Hemoglobin Concent 32.5 G/DL (32.0-36.0) Red Cell Distribution Width 13.0 % (11.6-14.8) Platelet Count 322 K/UL (150-450) Mean Platelet Volume 8.1 FL (6.5-10.1) Neutrophils (%) (Auto) % (45.0-75.0) Lymphocytes (%) (Auto) % (20.0-45.0) Monocytes (%) (Auto) % (1.0-10.0) Eosinophils (%) (Auto) % (0.0-3.0) Basophils (%) (Auto) % (0.0-2.0) Differential Total Cells Counted 100 Neutrophils % (Manual) 55 % (45-75) Lymphocytes % (Manual) 27 % (20-45) Monocytes % (Manual) 13 % (1-10) H Eosinophils % (Manual) 4 % (0-3) H Basophils % (Manual) 1 % (0-2) Band Neutrophils 0 % (0-8) Platelet Estimate Adequate Platelet Morphology Normal Red Blood Cell Morphology Hypochromasia 2+ Anisocytosis 1+ Macrocytosis 3+ Sodium Level 143 mEQ/L (135-145) Potassium Level 4.4 mEQ/L (3.4-4.9) Chloride Level 103 mEQ/L (98-107) Carbon Dioxide Level 27 mEQ/L (20-30) Anion Gap 13 (5-15) Blood Urea Nitrogen 33 mg/dL (7-23) H Creatinine 1.3 mg/dL (0.5-0.9) H Estimat Glomerular Filtration Rate mL/min (>60) Glucose Level 105 mg/dL (74-106) Calcium Level 10.3 mg/dL (8.6-10.2) H Pro-B-Type Natriuretic Peptide 1746 pg/mL (0-125) H YOVANNY SNYDER Dec 11, 2016 11:13
[2016-12-11 12:13] VITALS: BP 141/66
[2016-12-11 16:17] VITALS: BP 123/58
[2016-12-11] MEDS: cefTRIAXone 1 GM in D5W 55 ML IVPB SCH (18:28)
--- NOTE | 2016-12-11 20:02 | Cardiology Progress Note ---
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 megaloblastic anemia back pain ivf dcd palpitation but no sig tachy likey realted to hhn ivabx bp is better renal function seem improved likely atn echo normal lv systolic fxn mild diastolic dysfunction ambulate anxious Subjective Cardiovascular: Reports: palpitations, Denies: lightheadedness Respiratory: Reports: shortness of breath Gastrointestinal/Abdominal: Denies: abdominal pain Genitourinary: Denies: burning Objective Last 24 Hour Vital Signs Date Time Temp Pulse Resp B/P Pulse Ox O2 Delivery O2 Flow Rate FiO2 12/11/16 19:19 78 18 98 Room Air 21 12/11/16 19:19 Room Air 12/11/16 19:19 94 Room Air 12/11/16 19:15 21 12/11/16 19:15 79 18 94 Room Air 21 12/11/16 16:17 98.2 98 18 123/58 98 Room Air 12/11/16 16:00 83 12/11/16 13:48 76 18 98 Room Air 21 12/11/16 13:37 21 12/11/16 13:35 75 16 97 Room Air 21 12/11/16 12:13 97.9 86 18 141/66 97 Room Air 12/11/16 12:00 82 12/11/16 08:49 77 18 98 Room Air 12/11/16 08:39 21 12/11/16 08:38 Room Air 12/11/16 08:38 76 18 97 Room Air 12/11/16 08:38 97 Room Air 12/11/16 08:11 99.3 75 18 132/65 95 Room Air 12/11/16 08:00 72 12/11/16 04:05 98.1 77 18 122/84 95 Room Air 12/11/16 04:00 72 12/11/16 01:53 74 18 97 Room Air 12/11/16 01:43 21 12/11/16 01:43 72 18 94 Room Air 12/11/16 00:22 98.6 74 19 109/55 98 Room Air 12/11/16 00:00 72 12/10/16 20:47 Room Air 12/10/16 20:46 96 Room Air 12/10/16 20:35 80 18 98 Room Air 21 12/10/16 20:25 21 12/10/16 20:25 79 20 96 Room Air 21 General Appearance: no apparent distress, alert Neck: supple Cardiovascular: normal rate, regular rhythm Respiratory/Chest: lungs clear, normal breath sounds Abdomen: normal bowel sounds, non tender, soft Extremities: no swelling Intake and Output 12/10/16 12/11/16 19:00 07:00 Intake Total 750 ml Balance 750 ml Intake Oral 750 ml # Voids 3 Laboratory Tests Test 12/11/16 00:00 12/11/16 06:25 Urine Eosinophils None seen White Blood Count 4.8 K/UL (4.8-10.8) Red Blood Count 2.34 M/UL (4.20-5.40) L Hemoglobin 9.1 G/DL (12.0-16.0) L Hematocrit 28.1 % (37.0-47.0) L Mean Corpuscular Volume 120 FL (80-99) H Mean Corpuscular Hemoglobin 39.1 PG (27.0-31.0) H Mean Corpuscular Hemoglobin Concent 32.5 G/DL (32.0-36.0) Red Cell Distribution Width 13.0 % (11.6-14.8) Platelet Count 322 K/UL (150-450) Mean Platelet Volume 8.1 FL (6.5-10.1) Neutrophils (%) (Auto) % (45.0-75.0) Lymphocytes (%) (Auto) % (20.0-45.0) Monocytes (%) (Auto) % (1.0-10.0) Eosinophils (%) (Auto) % (0.0-3.0) Basophils (%) (Auto) % (0.0-2.0) Differential Total Cells Counted 100 Neutrophils % (Manual) 55 % (45-75) Lymphocytes % (Manual) 27 % (20-45) Monocytes % (Manual) 13 % (1-10) H Eosinophils % (Manual) 4 % (0-3) H Basophils % (Manual) 1 % (0-2) Band Neutrophils 0 % (0-8) Platelet Estimate Adequate Platelet Morphology Normal Red Blood Cell Morphology Hypochromasia 2+ Anisocytosis 1+ Macrocytosis 3+ Sodium Level 143 mEQ/L (135-145) Potassium Level 4.4 mEQ/L (3.4-4.9) Chloride Level 103 mEQ/L (98-107) Carbon Dioxide Level 27 mEQ/L (20-30) Anion Gap 13 (5-15) Blood Urea Nitrogen 33 mg/dL (7-23) H Creatinine 1.3 mg/dL (0.5-0.9) H Estimat Glomerular Filtration Rate mL/min (>60) Glucose Level 105 mg/dL (74-106) Calcium Level 10.3 mg/dL (8.6-10.2) H Pro-B-Type Natriuretic Peptide 1746 pg/mL (0-125) H EDI RAMIREZ Dec 11, 2016 20:02
--- NOTE | 2016-12-11 20:28 | General Progress Note ---
Assessment/Plan Assessment/Plan 76 y/o female admitted with UTI, generalized weakness, hypotension, acute kidney injury Assessment: -UTI(E. coli:) -Acute kidney injury -Generalized weakness -hypotension -anemia -essential thrombocytosis -constiaption\ -hx of lumbar fusion/DJD -weakness Plan: -zosyn dced by ID and pt on ceftriaxone 1 g daily -dc IV fluids per nephrology -montior BUN/creat -pt mobility -appreciate cardiolgy and nephorlogy input -continue all meds renally dosed -avoid nephrotoxic agents -bowel regiment -VTE pophylaxis -add pericolace bid -will start home lasix 20 mg daily for now -chest xray normal -increase Miralax to bid -ambulate pt mobility discussed with nurse ambulate continue IV antibiotics for 2 more days Subjective Date patient seen: Dec 11, 2016 Time patient seen: 20:26 Gastrointestinal/Abdominal: Reports: constipated Allergies: Coded Allergies: CORTISONE (Verified Allergy, Unknown, 12/07/16) Objective Last 24 Hour Vital Signs Date Time Temp Pulse Resp B/P Pulse Ox O2 Delivery O2 Flow Rate FiO2 12/11/16 19:19 78 18 98 Room Air 21 12/11/16 19:19 Room Air 12/11/16 19:19 94 Room Air 12/11/16 19:15 21 12/11/16 19:15 79 18 94 Room Air 21 12/11/16 16:17 98.2 98 18 123/58 98 Room Air 12/11/16 16:00 83 12/11/16 13:48 76 18 98 Room Air 21 12/11/16 13:37 21 12/11/16 13:35 75 16 97 Room Air 21 12/11/16 12:13 97.9 86 18 141/66 97 Room Air 12/11/16 12:00 82 12/11/16 08:49 77 18 98 Room Air 21 12/11/16 08:39 21 12/11/16 08:38 Room Air 12/11/16 08:38 76 18 97 Room Air 21 12/11/16 08:38 97 Room Air 12/11/16 08:11 99.3 75 18 132/65 95 Room Air 12/11/16 08:00 72 12/11/16 04:05 98.1 77 18 122/84 95 Room Air 12/11/16 04:00 72 12/11/16 01:53 74 18 97 Room Air 21 12/11/16 01:43 21 12/11/16 01:43 72 18 94 Room Air 21 12/11/16 00:22 98.6 74 19 109/55 98 Room Air 12/11/16 00:00 72 12/10/16 20:47 Room Air 12/10/16 20:46 96 Room Air 12/10/16 20:35 80 18 98 Room Air 21 Intake and Output 12/10/16 12/11/16 19:00 07:00 Intake Total 750 ml Balance 750 ml Intake Oral 750 ml # Voids 3 Laboratory Tests 12/11/16 00:00: Urine Eosinophils None seen 12/11/16 06:25: White Blood Count 4.8, Red Blood Count 2.34L, Hemoglobin 9.1L, Hematocrit 28.1L , Mean Corpuscular Volume 120H, Mean Corpuscular Hemoglobin 39.1H, Mean Corpuscular Hemoglobin Concent 32.5, Red Cell Distribution Width 13.0, Platelet Count 322, Mean Platelet Volume 8.1, Neutrophils (%) (Auto) , Lymphocytes (%) ( Auto) , Monocytes (%) (Auto) , Eosinophils (%) (Auto) , Basophils (%) (Auto) , Differential Total Cells Counted 100, Neutrophils % (Manual) 55, Lymphocytes % ( Manual) 27, Monocytes % (Manual) 13H, Eosinophils % (Manual) 4H, Basophils % ( Manual) 1, Band Neutrophils 0, Platelet Estimate Adequate, Platelet Morphology Normal, Red Blood Cell Morphology , Hypochromasia 2+, Anisocytosis 1+, Macrocytosis 3+, Sodium Level 143, Potassium Level 4.4, Chloride Level 103, Carbon Dioxide Level 27, Anion Gap 13, Blood Urea Nitrogen 33H, Creatinine 1.3H , Estimat Glomerular Filtration Rate , Glucose Level 105, Calcium Level 10.3H, Pro-B-Type Natriuretic Peptide 1746H Height (Feet): 5 Height (Inches): 5.00 Weight (Pounds): 195 General Appearance: WD/WN, no apparent distress, alert EENT: PERRL/EOMI Neck: non-tender, normal alignment Cardiovascular: regular rhythm Respiratory/Chest: lungs clear, normal breath sounds Abdomen: normal bowel sounds, non tender Extremities: normal range of motion Edema: no edema noted Arm (L), no edema noted Arm (R), no edema noted Leg (L), no edema noted Leg (R), no edema noted Pedal (L), no edema noted Pedal (R), no edema noted Generalized 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
[2016-12-11 21:00] VITALS: BP 123/58
[2016-12-11] MEDS: Timolol 0.5% Op Soln 2.5ml BOTH EYES SCH (21:31)
[2016-12-12] VITALS (8 sets, daily range): BP systolic 124–143; BP diastolic 57–98
[2016-12-12] MEDS: DuoNeb 0.5-3(2.5)mg/3ml neb HHN SCH ×4 (00:44→19:38)
[2016-12-12] MEDS: Miralax 17gm pkt ORAL SCH ×2 (08:32→17:43)
[2016-12-12] MEDS: Hydroxyurea 500mg cap ORAL SCH (08:32)
[2016-12-12] MEDS: Aspirin Baby 81mg ORAL SCH (08:32)
[2016-12-12] MEDS: Pericolace tab ORAL SCH ×2 (08:32→17:42)
[2016-12-12] MEDS: guaiFENesin DM 100mg/5ml ORAL PRN ×2 (08:32→16:03)
[2016-12-12] MEDS: Tolterodine 2mg tab ORAL SCH ×2 (08:32→17:43)
[2016-12-12] MEDS: FORTEO SUBQ SCH (08:32)
[2016-12-12] MEDS: Heparin 5000 units/ml inj SUBQ SCH ×2 (08:37→20:34)
[2016-12-12 08:41] LABS: FERRITIN 212 ng/mL (13-150)
[2016-12-12 08:49] LABS: ANION GAP 13 (5-15); CALCIUM 9.7 mg/dL (8.6-10.2); CARBON DIOXIDE 29 mEQ/L (20-30); CHLORIDE 102 mEQ/L (98-107); CREATININE 1.2 mg/dL (0.5-0.9); POTASSIUM 4.5 mEQ/L (3.4-4.9); SODIUM 144 mEQ/L (135-145)
[2016-12-12 08:58] LABS: HEMOLYSIS 2; IRON 67 ug/dL (37-145); TOTAL IRON BINDING CAPACITY 222 ug/dL (250-400)
--- NOTE | 2016-12-12 09:16 | General Progress Note ---
Assessment/Plan Status: stable - from renal stand Status Narrative Cr 1.2 Assessment/Plan status: Acute renal failure- Mainly PreRenal due to diuretics, ? Underlying CKD ? 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 DC Both kidneys demonstrate normal echogenicity. There is no hydronephrosis. There is a slightly prominent left renal pelvis. Subjective ROS Limited/Unobtainable: No Constitutional: Reports: malaise Respiratory: Reports: cough Allergies: Coded Allergies: CORTISONE (Verified Allergy, Unknown, 12/07/16) Objective Last 24 Hour Vital Signs Date Time Temp Pulse Resp B/P Pulse Ox O2 Delivery O2 Flow Rate FiO2 12/12/16 08:23 98.2 82 20 139/69 97 Room Air 12/12/16 08:00 75 16 99 Room Air 12/12/16 07:50 98 16 95 Room Air 12/12/16 07:49 Room Air 12/12/16 07:48 95 Room Air 12/12/16 04:01 79 12/12/16 03:53 98.0 76 20 143/98 86 12/12/16 01:39 98.0 88 20 136/88 98 Room Air 12/12/16 01:36 98.0 20 126/88 96 Room Air 12/12/16 01:07 98.2 77 20 126/88 96 Room Air 12/12/16 01:04 79 12/12/16 00:45 74 18 99 Room Air 21 12/12/16 00:39 72 18 94 Room Air 21 12/12/16 00:39 21 12/11/16 21:00 98.2 98 18 123/58 98 Room Air 2.0 21 12/11/16 19:19 78 18 98 Room Air 21 12/11/16 19:19 Room Air 12/11/16 19:19 94 Room Air 12/11/16 19:15 21 12/11/16 19:15 79 18 94 Room Air 21 12/11/16 16:17 98.2 98 18 123/58 98 Room Air 12/11/16 16:00 83 12/11/16 13:48 76 18 98 Room Air 21 12/11/16 13:37 21 12/11/16 13:35 75 16 97 Room Air 21 12/11/16 12:13 97.9 86 18 141/66 97 Room Air 12/11/16 12:00 82 Intake and Output 12/11/16 12/12/16 19:00 07:00 Intake Total 600 ml 55 ml Balance 600 ml 55 ml Intake Oral 600 ml IV Total 55 ml # Voids 4 # Bowel Movements 1 Laboratory Tests 12/12/16 07:05: Sodium Level 144, Potassium Level 4.5, Chloride Level 102, Carbon Dioxide Level 29, Anion Gap 13, Blood Urea Nitrogen 31H, Creatinine 1.2H, Estimat Glomerular Filtration Rate , Glucose Level 108H, Calcium Level 9.7, Iron Level 67, Total Iron Binding Capacity 222L, Percent Iron Saturation 30, Unsaturated Iron Binding 155, Ferritin 212H Height (Feet): 5 Height (Inches): 5.00 Weight (Pounds): 192 General Appearance: no apparent distress, lethargic Objective other PE not changed MARIA ESTHER BALDWIN Dec 12, 2016 09:16
--- NOTE | 2016-12-12 12:47 | Pulmonology Progress Note ---
Assessment/Plan Problems: (1) Chronic bronchitis (2) Anemia (3) ARF (acute renal failure) (4) Dehydration (5) Hypotension Assessment/Plan improving no sputum yet start antitussives continue antibiotics anemia w/u in progress. Subjective ROS Limited/Unobtainable: No Interval Events: still coughing, Allergies: Coded Allergies: CORTISONE (Verified Allergy, Unknown, 12/07/16) Objective Last 24 Hour Vital Signs Date Time Temp Pulse Resp B/P Pulse Ox O2 Delivery O2 Flow Rate FiO2 12/12/16 11:33 97.3 84 20 124/57 95 Room Air 12/12/16 08:23 98.2 82 20 139/69 97 Room Air 12/12/16 08:00 75 16 99 Room Air 12/12/16 07:50 98 16 95 Room Air 12/12/16 07:49 Room Air 12/12/16 07:48 95 Room Air 12/12/16 04:01 79 12/12/16 03:53 98.0 76 20 143/98 86 12/12/16 01:39 98.0 88 20 136/88 98 Room Air 12/12/16 01:36 98.0 20 126/88 96 Room Air 12/12/16 01:07 98.2 77 20 126/88 96 Room Air 12/12/16 01:04 79 12/12/16 00:45 74 18 99 Room Air 21 12/12/16 00:39 72 18 94 Room Air 12/12/16 00:39 21 12/11/16 21:00 98.2 98 18 123/58 98 Room Air 2.0 21 12/11/16 19:19 78 18 98 Room Air 21 12/11/16 19:19 Room Air 12/11/16 19:19 94 Room Air 12/11/16 19:15 21 12/11/16 19:15 79 18 94 Room Air 21 12/11/16 16:17 98.2 98 18 123/58 98 Room Air 12/11/16 16:00 83 12/11/16 13:48 76 18 98 Room Air 21 12/11/16 13:37 21 12/11/16 13:35 75 16 97 Room Air 21 Intake and Output 12/11/16 12/12/16 19:00 07:00 Intake Total 600 ml 55 ml Balance 600 ml 55 ml Intake Oral 600 ml IV Total 55 ml # Voids 4 # Bowel Movements 1 General Appearance: WD/WN, no acute distress HEENT: normocephalic, atraumatic Respiratory/Chest: chest wall non-tender, lungs clear Cardiovascular: normal peripheral pulses, normal rate, regular rhythm Abdomen: normal bowel sounds, soft, non tender, no organomegaly, non distended Extremities: no cyanosis, no clubbing, no edema 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, no motor/sensory deficits Lymphatic: no neck adenopathy Laboratory Tests 12/12/16 07:05: Sodium Level 144, Potassium Level 4.5, Chloride Level 102, Carbon Dioxide Level 29, Anion Gap 13, Blood Urea Nitrogen 31H, Creatinine 1.2H, Estimat Glomerular Filtration Rate , Glucose Level 108H, Calcium Level 9.7, Iron Level 67, Total Iron Binding Capacity 222L, Percent Iron Saturation 30, Unsaturated Iron Binding 155, Ferritin 212H Current Medications Medications (Trade) Dose Ordered Sig/Rhiannon Route PRN Reason Start Time Stop Time Status Last Admin Dose Admin Acetaminophen (Tylenol) 650 mg Q6H PRN ORAL Mild Pain/Temp > 100.5 12/08/16 00:30 01/07/17 00:29 12/10/16 18:35 Albuterol/ Ipratropium (DuoNeb 0.5-3(2.5)mg/3ml) 3 ml Q4H PRN HHN Shortness of Breath 12/09/16 10:30 12/14/16 10:29 12/09/16 20:17 Albuterol/ Ipratropium (DuoNeb 0.5-3(2.5)mg/3ml) 3 ml Q6HRT HHN 12/10/16 01:00 12/15/16 00:59 12/12/16 07:55 Aspirin (ASA) 81 mg DAILY ORAL 12/08/16 12:00 01/07/17 11:59 12/12/16 08:32 Ceftriaxone Sodium/Dextrose (Rocephin/D5W) 55 ml @ 110 mls/hr Q24H IVPB 12/09/16 19:00 12/16/16 18:59 12/11/16 18:28 Furosemide (Lasix) 20 mg DAILY ORAL 12/10/16 20:00 01/09/17 19:59 12/12/16 09:55 Gabapentin (Neurontin) 300 mg THREE TIMES A DAY ORAL 12/08/16 13:00 01/07/17 12:59 12/12/16 08:32 Guaifenesin/ Dextromethorphan (Robitussin DM) 15 ml Q4H PRN ORAL For Cough 12/10/16 17:30 01/09/17 17:29 12/12/16 08:32 Heparin Sodium (Porcine) (Heparin 5000 units/ml) 5,000 units EVERY 12 HOURS SUBQ 12/08/16 09:00 01/07/17 08:59 12/12/16 08:37 Hydroxyurea (Hydrea) 500 mg DAILY ORAL 12/08/16 18:00 12/13/16 17:59 12/12/16 08:32 Lidocaine (Lidoderm 5% PATCH) 1 patch DAILY TDERMAL 12/08/16 12:00 01/07/17 11:59 12/12/16 08:32 Patient Own Medication 20 ea 20 ea DAILY SUBQ 12/09/16 13:30 01/08/17 13:29 12/12/16 08:32 Polyethylene Glycol (Miralax) 17 gm BID ORAL 12/11/16 09:00 01/10/17 08:59 12/12/16 08:32 Ranitidine HCl 150 mg 150 mg BEDTIME ORAL 12/08/16 21:00 01/07/17 20:59 12/11/16 21:31 Senna/Docusate Sodium (Bee-Colace) 1 ea TWICE A DAY ORAL 12/10/16 20:00 01/09/17 19:59 12/12/16 08:32 Sodium Chloride (NS) 500 ml @ 999 mls/hr DAILY PRN IVPB HYPOTESNSION 12/08/16 13:00 01/07/17 12:59 Timolol Maleate (Timoptic 0.5% Op Soln) 1 drop QHS BOTH EYES 12/08/16 21:00 01/07/17 20:59 12/11/16 21:31 Tolterodine Tartrate (Detrol) 4 mg TWICE A DAY ORAL 12/08/16 18:00 01/07/17 17:59 12/12/16 08:32 LEWIS SOTELO Dec 12, 2016 12:47
[2016-12-12] MEDS ORDERED: Promethazine/Codeine 5ml UD ORAL PRN (13:00)
[2016-12-12] MEDS ORDERED: DuoNeb 0.5-3(2.5)mg/3ml neb HHN PRN (15:00)
[2016-12-12] MEDS ORDERED: cefTRIAXone 1 GM in D5W 55 ML IVPB SCH (19:00)
[2016-12-12] MEDS: Timolol 0.5% Op Soln 2.5ml BOTH EYES SCH (20:32)
[2016-12-12] MEDS: Promethazine/Codeine 5ml UD ORAL PRN (20:39)
[2016-12-13] VITALS: BP 148/78
[2016-12-13] MEDS: DuoNeb 0.5-3(2.5)mg/3ml neb HHN SCH ×4 (01:29→20:01)
[2016-12-13 04:00] VITALS: BP 144/72
[2016-12-13] MEDS: guaiFENesin DM 100mg/5ml ORAL PRN (04:48)
[2016-12-13 08:01] VITALS: BP 131/71
[2016-12-13] MEDS: Pericolace tab ORAL SCH ×2 (08:23→18:02)
[2016-12-13] MEDS: Miralax 17gm pkt ORAL SCH ×2 (08:23→17:54)
[2016-12-13] MEDS: Aspirin Baby 81mg ORAL SCH (08:23)
[2016-12-13] MEDS: Tolterodine 2mg tab ORAL SCH ×2 (08:24→17:59)
[2016-12-13] MEDS: Hydroxyurea 500mg cap ORAL SCH (08:24)
[2016-12-13] MEDS: Promethazine/Codeine 5ml UD ORAL PRN ×4 (08:38→22:29)
[2016-12-13] MEDS: TERIPARATIDE 600 MCG/2.4 ML SUBQ SCH (08:38)
[2016-12-13] MEDS: Heparin 5000 units/ml inj SUBQ SCH ×2 (08:42→20:23)
--- NOTE | 2016-12-13 10:08 | Infectious Diseases Prog Note ---
Assessment/Plan Assessment/Plan A: E. coli UTI s/p Rx Acute renal failure improving Anemia P; discontinue Rocephin Subjective ROS Limited/Unobtainable: No Respiratory: Reports: productive cough Cardiovascular: Reports: no symptoms Gastrointestinal/Abdominal: Reports: no symptoms Genitourinary: Reports: frequency Hematologic: Reports: no symptoms Musculoskeletal: Reports: no symptoms Allergies: Coded Allergies: CORTISONE (Verified Allergy, Unknown, 12/07/16) Objective Vital Signs Last 24 Hour Vital Signs Date Time Temp Pulse Resp B/P Pulse Ox O2 Delivery O2 Flow Rate FiO2 12/13/16 08:01 98.2 92 18 131/71 92 Room Air 12/13/16 06:58 85 18 98 Room Air 12/13/16 06:51 80 18 94 Room Air 12/13/16 04:00 98.1 96 18 144/72 92 Room Air 12/13/16 01:37 90 18 98 Room Air 12/13/16 01:29 90 18 93 Room Air 12/13/16 00:00 98.2 82 18 148/78 95 Room Air 12/12/16 20:00 97.9 70 20 140/68 70 Room Air 12/12/16 19:46 78 18 99 Room Air 12/12/16 19:38 95 Room Air 12/12/16 19:38 Room Air 12/12/16 19:38 75 18 95 Room Air 12/12/16 16:56 97.7 12/12/16 16:00 97.7 83 19 143/70 95 Room Air 12/12/16 13:40 90 18 98 Room Air 12/12/16 13:30 110 20 94 Room Air 12/12/16 12:00 84 12/12/16 11:33 97.3 84 20 124/57 95 Room Air Height (Feet): 5 Height (Inches): 5.00 Weight (Pounds): 190 General Appearance: no acute distress HEENT: mucous membranes moist Respiratory/Chest: lungs clear Cardiovascular: normal rate Abdomen: soft, non tender Extremities: no edema Neurologic/Psychiatric: alert, oriented x 3, responsive Current Medications Medications (Trade) Dose Ordered Sig/Rhiannon Route PRN Reason Start Time Stop Time Status Last Admin Dose Admin Acetaminophen (Tylenol) 650 mg Q6H PRN ORAL Mild Pain/Temp > 100.5 12/12/16 15:00 01/11/17 14:59 12/12/16 15:57 Albuterol/ Ipratropium (DuoNeb 0.5-3(2.5)mg/3ml) 3 ml Q4H PRN HHN Shortness of Breath 12/12/16 15:00 12/17/16 14:59 Albuterol/ Ipratropium (DuoNeb 0.5-3(2.5)mg/3ml) 3 ml Q6HRT HHN 12/12/16 19:00 12/17/16 18:59 12/13/16 06:51 Aspirin (ASA) 81 mg DAILY ORAL 12/13/16 09:00 01/12/17 08:59 12/13/16 08:23 Ceftriaxone Sodium 1 gm/ Dextrose 55 ml @ 110 mls/hr Q24H IVPB 12/12/16 19:00 12/19/16 18:59 12/12/16 18:51 Furosemide (Lasix) 20 mg DAILY ORAL 12/13/16 09:00 01/12/17 08:59 12/13/16 08:23 Gabapentin (Neurontin) 300 mg THREE TIMES A DAY ORAL 12/12/16 18:00 01/11/17 17:59 12/13/16 08:24 Guaifenesin/ Dextromethorphan (Robitussin DM) 15 ml Q4H PRN ORAL For Cough 12/12/16 15:00 01/11/17 14:59 12/13/16 04:48 Heparin Sodium (Porcine) (Heparin 5000 units/ml) 5,000 units EVERY 12 HOURS SUBQ 12/12/16 21:00 01/11/17 20:59 12/13/16 08:42 Hydroxyurea (Hydrea) 500 mg DAILY ORAL 12/13/16 09:00 12/18/16 08:59 12/13/16 08:24 Lidocaine (Lidoderm 5% PATCH) 1 patch DAILY TDERMAL 12/13/16 09:00 01/12/17 08:59 12/13/16 08:25 Patient Own Medication (Patient's Own Med) 20 ea DAILY SUBQ 12/13/16 09:00 01/12/17 08:59 12/13/16 08:38 Polyethylene Glycol (Miralax) 17 gm BID ORAL 12/12/16 18:00 01/11/17 17:59 12/13/16 08:23 Promethazine HCl/ Codeine (Phenergan with Codeine) 5 ml Q4H PRN ORAL COUGH UNRELIEVED BY ROBITUSSIN 12/12/16 17:00 01/11/17 16:59 12/13/16 08:38 Ranitidine HCl (Zantac) 150 mg BEDTIME ORAL 12/12/16 21:00 01/11/17 20:59 12/12/16 20:32 Senna/Docusate Sodium (Bee-Colace) 1 ea TWICE A DAY ORAL 12/12/16 18:00 01/11/17 17:59 12/13/16 08:23 Sodium Chloride (NS) 500 ml @ 999 mls/hr DAILY PRN IV HYPOTESNSION 12/13/16 09:00 01/12/17 08:59 Timolol Maleate (Timoptic 0.5% Op Soln) 1 drop QHS BOTH EYES 12/12/16 21:00 01/11/17 20:59 12/12/16 20:32 Tolterodine Tartrate (Detrol) 4 mg TWICE A DAY ORAL 12/12/16 18:00 01/11/17 17:59 12/13/16 08:24 IVON JULIEN Dec 13, 2016 10:08
--- NOTE | 2016-12-13 10:54 | General Progress Note ---
Assessment/Plan Status: stable Assessment/Plan status: Acute renal failure- Mainly PreRenal due to diuretics, ? Underlying CKD ? 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 DC Both kidneys demonstrate normal echogenicity. There is no hydronephrosis. There is a slightly prominent left renal pelvis. Subjective ROS Limited/Unobtainable: No Constitutional: Reports: malaise Allergies: Coded Allergies: CORTISONE (Verified Allergy, Unknown, 12/07/16) Objective Last 24 Hour Vital Signs Date Time Temp Pulse Resp B/P Pulse Ox O2 Delivery O2 Flow Rate FiO2 12/13/16 08:01 98.2 92 18 131/71 92 Room Air 12/13/16 06:58 85 18 98 Room Air 12/13/16 06:51 80 18 94 Room Air 12/13/16 04:00 98.1 96 18 144/72 92 Room Air 12/13/16 01:37 90 18 98 Room Air 12/13/16 01:29 90 18 93 Room Air 12/13/16 00:00 98.2 82 18 148/78 95 Room Air 12/12/16 20:00 97.9 70 20 140/68 70 Room Air 12/12/16 19:46 78 18 99 Room Air 12/12/16 19:38 95 Room Air 12/12/16 19:38 Room Air 12/12/16 19:38 75 18 95 Room Air 12/12/16 16:56 97.7 12/12/16 16:00 97.7 83 19 143/70 95 Room Air 12/12/16 13:40 90 18 98 Room Air 12/12/16 13:30 110 20 94 Room Air 12/12/16 12:00 84 12/12/16 11:33 97.3 84 20 124/57 95 Room Air Intake and Output 12/12/16 12/13/16 19:00 07:00 Intake Total 480 ml 50 ml Balance 480 ml 50 ml Intake Oral 480 ml 50 ml # Voids 1 1 Height (Feet): 5 Height (Inches): 5.00 Weight (Pounds): 190 General Appearance: no apparent distress Objective other PE not changed MARIA ESTHER BALDWIN Dec 13, 2016 10:54
[2016-12-13 12:00] VITALS: BP 130/74
[2016-12-13] MEDS ORDERED: NS 275ml ONE (14:09)
[2016-12-13] MEDS ORDERED: Tubing IV Secondary IV ONE (14:09)
[2016-12-13 16:05] VITALS: BP 127/59
[2016-12-13 20:00] VITALS: BP 146/79
[2016-12-13] MEDS: Timolol 0.5% Op Soln 2.5ml BOTH EYES SCH (20:22)
--- NOTE | 2016-12-13 23:08 | Pulmonology Progress Note ---
Assessment/Plan Problems: (1) Purulent bronchitis (2) Anemia (3) ARF (acute renal failure) (4) Dehydration (5) Hypotension Assessment/Plan improving, still coughing no sputum yet, still pending start antitussives continue antibiotics anemia w/u in progress. Subjective ROS Limited/Unobtainable: No Constitutional: Reports: no symptoms HEENT: Repors: no symptoms Respiratory: Reports: no symptoms Allergies: Coded Allergies: CORTISONE (Verified Allergy, Unknown, 12/07/16) Objective Last 24 Hour Vital Signs Date Time Temp Pulse Resp B/P Pulse Ox O2 Delivery O2 Flow Rate FiO2 12/13/16 20:20 83 16 98 Room Air 12/13/16 20:06 81 18 94 Room Air 12/13/16 20:00 98.4 76 18 146/79 95 Room Air 12/13/16 16:05 96.8 80 17 127/59 98 Room Air 12/13/16 13:14 81 16 98 Room Air 12/13/16 13:09 76 18 94 Room Air 12/13/16 12:00 97.7 91 18 130/74 92 Room Air 12/13/16 08:01 98.2 92 18 131/71 92 Room Air 12/13/16 06:58 85 18 98 Room Air 12/13/16 06:51 80 18 94 Room Air 12/13/16 04:00 98.1 96 18 144/72 92 Room Air 12/13/16 01:37 90 18 98 Room Air 12/13/16 01:29 90 18 93 Room Air 12/13/16 00:00 98.2 82 18 148/78 95 Room Air Intake and Output 12/12/16 12/13/16 19:00 07:00 Intake Total 480 ml 50 ml Balance 480 ml 50 ml Intake Oral 480 ml 50 ml # Voids 1 1 Objective General Appearance: WD/WN HEENT: normocephalic Respiratory/Chest: chest wall non-tender, lungs clear, normal breath sounds Cardiovascular: normal peripheral pulses, normal rate, regular rhythm Abdomen: normal bowel sounds, soft, non tender, no organomegaly, non distended Extremities: no cyanosis, no clubbing Skin: no rash, no lesions 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 Current Medications Medications (Trade) Dose Ordered Sig/Rhiannon Route PRN Reason Start Time Stop Time Status Last Admin Dose Admin Acetaminophen (Tylenol) 650 mg Q6H PRN ORAL Mild Pain/Temp > 100.5 12/12/16 15:00 01/11/17 14:59 12/12/16 15:57 Albuterol/ Ipratropium (DuoNeb 0.5-3(2.5)mg/3ml) 3 ml Q4H PRN HHN Shortness of Breath 12/12/16 15:00 12/17/16 14:59 Albuterol/ Ipratropium (DuoNeb 0.5-3(2.5)mg/3ml) 3 ml Q6HRT HHN 12/12/16 19:00 12/17/16 18:59 12/13/16 20:01 Aspirin (ASA) 81 mg DAILY ORAL 12/13/16 09:00 01/12/17 08:59 12/13/16 08:23 Furosemide (Lasix) 20 mg DAILY ORAL 12/13/16 09:00 01/12/17 08:59 12/13/16 08:23 Gabapentin (Neurontin) 300 mg THREE TIMES A DAY ORAL 12/12/16 18:00 01/11/17 17:59 12/13/16 17:54 Guaifenesin/ Dextromethorphan (Robitussin DM) 15 ml Q4H PRN ORAL For Cough 12/12/16 15:00 01/11/17 14:59 12/13/16 04:48 Heparin Sodium (Porcine) (Heparin 5000 units/ml) 5,000 units EVERY 12 HOURS SUBQ 12/12/16 21:00 01/11/17 20:59 12/13/16 20:23 Hydroxyurea (Hydrea) 500 mg DAILY ORAL 12/13/16 09:00 12/18/16 08:59 12/13/16 08:24 Lidocaine (Lidoderm 5% PATCH) 1 patch DAILY TDERMAL 12/13/16 09:00 01/12/17 08:59 12/13/16 08:25 Patient Own Medication (Patient's Own Med) 20 ea DAILY SUBQ 12/13/16 09:00 01/12/17 08:59 12/13/16 08:38 Polyethylene Glycol (Miralax) 17 gm BID ORAL 12/12/16 18:00 01/11/17 17:59 12/13/16 17:54 Promethazine HCl/ Codeine (Phenergan with Codeine) 5 ml Q4H PRN ORAL COUGH UNRELIEVED BY ROBITUSSIN 12/12/16 17:00 01/11/17 16:59 12/13/16 22:29 Ranitidine HCl (Zantac) 150 mg BEDTIME ORAL 12/12/16 21:00 01/11/17 20:59 12/13/16 20:22 Senna/Docusate Sodium (Bee-Colace) 1 ea TWICE A DAY ORAL 12/12/16 18:00 01/11/17 17:59 12/13/16 18:02 Sodium Chloride (NS) 500 ml @ 999 mls/hr DAILY PRN IV HYPOTESNSION 12/13/16 09:00 01/12/17 08:59 Timolol Maleate (Timoptic 0.5% Op Soln) 1 drop QHS BOTH EYES 12/12/16 21:00 01/11/17 20:59 12/13/16 20:22 Tolterodine Tartrate (Detrol) 4 mg TWICE A DAY ORAL 12/12/16 18:00 01/11/17 17:59 12/13/16 17:59 LEWIS SOTELO Dec 13, 2016 23:08
[2016-12-14] MEDS: DuoNeb 0.5-3(2.5)mg/3ml neb HHN SCH ×4 (01:16→19:00)
[2016-12-14 04:00] VITALS: BP 115/68
[2016-12-14 07:31] LABS: MEAN CORPUSCULAR HEMOGLOBIN 38.4 PG (27.0-31.0); MEAN CORPUSCULAR HGB CONC 32.1 G/DL (32.0-36.0); MEAN CORPUSCULAR VOLUME 120 FL (80-99); MEAN PLATELET VOLUME 7.2 FL (6.5-10.1); PLATELET COUNT 503 K/UL (150-450); RED CELL DISTRIBUTION WIDTH 13.2 % (11.6-14.8); WHITE BLOOD COUNT 5.6 K/UL (4.8-10.8)
[2016-12-14 07:59] LABS: ALANINE AMINOTRANSFERASE 49 U/L (3-33); ALBUMIN/GLOBULIN RATIO 1.1 (1.0-2.7); ANION GAP 14 (5-15); ASPARTATE AMINO TRANSFERASE 41 U/L (5-40); CALCIUM 9.2 mg/dL (8.6-10.2); CARBON DIOXIDE 27 mEQ/L (20-30); CHLORIDE 99 mEQ/L (98-107); CREATININE 1.2 mg/dL (0.5-0.9); CRP QUANT 2.5 mg/dL (< 0.5); HEMOLYSIS 2; MAGNESIUM 1.8 mg/dL (1.7-2.5); PHOSPHORUS 3.5 mg/dL (2.5-4.8); POTASSIUM 4.6 mEQ/L (3.4-4.9); SODIUM 140 mEQ/L (135-145); TOTAL PROTEIN 6.1 g/dL (6.6-8.7); URIC ACID 5.6 mg/dL (3.0-7.5)
[2016-12-14 08:00] VITALS: BP 144/63
[2016-12-14] MEDS: Aspirin Baby 81mg ORAL SCH (08:33)
[2016-12-14] MEDS: Pericolace tab ORAL SCH ×2 (08:33→18:07)
[2016-12-14] MEDS: Tolterodine 2mg tab ORAL SCH ×2 (08:33→18:07)
[2016-12-14] MEDS: Hydroxyurea 500mg cap ORAL SCH (08:33)
[2016-12-14] MEDS: Miralax 17gm pkt ORAL SCH ×2 (08:35→18:07)
[2016-12-14] MEDS: TERIPARATIDE 600 MCG/2.4 ML SUBQ SCH (08:35)
[2016-12-14] MEDS: Heparin 5000 units/ml inj SUBQ SCH (08:58)
[2016-12-14 09:09] LABS: BAND NEUTROPHILS % (MANUAL) 0 % (0-8); BASOPHILS % (MANUAL) 0 % (0-2); EOSINOPHILS % (MANUAL) 8 % (0-3); LYMPHOCYTES % (MANUAL) 39 % (20-45); NEUTROPHILS % (MANUAL) 43 % (45-75); PLATELET ESTIMATE INCREASED; PLATELET MORPHOLOGY NORMAL; TOTAL CELLS COUNTED 100
[2016-12-14 09:10] LABS: HYPOCHROMASIA 1+; MACROCYTES 1+
[2016-12-14 12:00] VITALS: BP 134/69
--- NOTE | 2016-12-14 12:54 | General Progress Note ---
Assessment/Plan Status: stable Status Narrative stable from renal and infectious stand point Assessment/Plan status: Acute renal failure- Mainly PreRenal due to diuretics, ? Underlying CKD ? 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 DC Both kidneys demonstrate normal echogenicity. There is no hydronephrosis. There is a slightly prominent left renal pelvis. Subjective ROS Limited/Unobtainable: No Constitutional: Reports: malaise, weakness Allergies: Coded Allergies: CORTISONE (Verified Allergy, Unknown, 12/07/16) Objective Last 24 Hour Vital Signs Date Time Temp Pulse Resp B/P Pulse Ox O2 Delivery O2 Flow Rate FiO2 12/14/16 11:46 78 18 Room Air 12/14/16 08:00 98.2 90 16 144/63 92 Room Air 12/14/16 06:55 84 16 98 Room Air 12/14/16 06:50 88 18 93 Room Air 12/14/16 04:00 98.2 72 18 115/68 92 Room Air 12/14/16 01:39 79 16 98 Room Air 12/14/16 01:17 85 18 93 Room Air 12/13/16 20:20 83 16 98 Room Air 12/13/16 20:06 81 18 94 Room Air 12/13/16 20:00 98.4 76 18 146/79 95 Room Air 12/13/16 16:05 96.8 80 17 127/59 98 Room Air 12/13/16 13:14 81 16 98 Room Air 12/13/16 13:09 76 18 94 Room Air Intake and Output 12/13/16 12/14/16 19:00 07:00 Intake Total 1040 ml 200 ml Balance 1040 ml 200 ml Intake Oral 1040 ml 200 ml # Voids 4 1 # Bowel Movements 1 Laboratory Tests 12/14/16 07:05: White Blood Count 5.6, Red Blood Count 2.50L, Hemoglobin 9.6L, Hematocrit 29.9L , Mean Corpuscular Volume 120H, Mean Corpuscular Hemoglobin 38.4H, Mean Corpuscular Hemoglobin Concent 32.1, Red Cell Distribution Width 13.2, Platelet Count 503H, Mean Platelet Volume 7.2, Neutrophils (%) (Auto) , Lymphocytes (%) ( Auto) , Monocytes (%) (Auto) , Eosinophils (%) (Auto) , Basophils (%) (Auto) , Differential Total Cells Counted 100, Neutrophils % (Manual) 43L, Lymphocytes % (Manual) 39, Monocytes % (Manual) 10, Eosinophils % (Manual) 8H, Basophils % ( Manual) 0, Band Neutrophils 0, Platelet Estimate IncreasedH, Platelet Morphology Normal, Hypochromasia 1+, Macrocytosis 1+, Sodium Level 140, Potassium Level 4.6, Chloride Level 99, Carbon Dioxide Level 27, Anion Gap 14, Blood Urea Nitrogen 24H, Creatinine 1.2H, Estimat Glomerular Filtration Rate , Glucose Level 93, Uric Acid 5.6, Calcium Level 9.2, Phosphorus Level 3.5, Magnesium Level 1.8, Total Bilirubin 0.4, Aspartate Amino Transf (AST/SGOT) 41H , Alanine Aminotransferase (ALT/SGPT) 49H, Alkaline Phosphatase 57, C-Reactive Protein, Quantitative 2.5H, Pro-B-Type Natriuretic Peptide 406H, Total Protein 6.1L, Albumin 3.2L, Globulin 2.9, Albumin/Globulin Ratio 1.1 Height (Feet): 5 Height (Inches): 5.00 Weight (Pounds): 178 General Appearance: no apparent distress Objective other PE not changed MARIA ESTHER BALDWIN Dec 14, 2016 12:54
--- NOTE | 2016-12-14 15:41 | Pulmonology Progress Note ---
Assessment/Plan Problems: (1) Purulent bronchitis (2) Anemia (3) ARF (acute renal failure) (4) Dehydration (5) Hypotension Assessment/Plan improving, still coughing no sputum yet, still pending start antitussives continue antibiotics anemia w/u in progress. ok to dc home Subjective ROS Limited/Unobtainable: No Constitutional: Reports: no symptoms HEENT: Repors: no symptoms Respiratory: Reports: no symptoms Allergies: Coded Allergies: CORTISONE (Verified Allergy, Unknown, 12/07/16) Objective Last 24 Hour Vital Signs Date Time Temp Pulse Resp B/P Pulse Ox O2 Delivery O2 Flow Rate FiO2 12/14/16 13:48 85 16 98 Room Air 12/14/16 13:43 84 18 93 Room Air 12/14/16 11:46 78 18 Room Air 12/14/16 08:00 98.2 90 16 144/63 92 Room Air 12/14/16 06:55 84 16 98 Room Air 12/14/16 06:50 88 18 93 Room Air 12/14/16 04:00 98.2 72 18 115/68 92 Room Air 12/14/16 01:39 79 16 98 Room Air 12/14/16 01:17 85 18 93 Room Air 12/13/16 20:20 83 16 98 Room Air 12/13/16 20:06 81 18 94 Room Air 12/13/16 20:00 98.4 76 18 146/79 95 Room Air 12/13/16 16:05 96.8 80 17 127/59 98 Room Air Intake and Output 12/13/16 12/14/16 19:00 07:00 Intake Total 1040 ml 200 ml Balance 1040 ml 200 ml Intake Oral 1040 ml 200 ml # Voids 4 1 # Bowel Movements 1 Objective General Appearance: WD/WN HEENT: normocephalic Respiratory/Chest: chest wall non-tender, lungs clear, normal breath sounds Cardiovascular: normal peripheral pulses, normal rate, regular rhythm Abdomen: normal bowel sounds, soft, non tender, no organomegaly, non distended Extremities: no cyanosis, no clubbing Skin: no rash, no lesions 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 Laboratory Tests 12/14/16 07:05: White Blood Count 5.6, Red Blood Count 2.50L, Hemoglobin 9.6L, Hematocrit 29.9L , Mean Corpuscular Volume 120H, Mean Corpuscular Hemoglobin 38.4H, Mean Corpuscular Hemoglobin Concent 32.1, Red Cell Distribution Width 13.2, Platelet Count 503H, Mean Platelet Volume 7.2, Neutrophils (%) (Auto) , Lymphocytes (%) ( Auto) , Monocytes (%) (Auto) , Eosinophils (%) (Auto) , Basophils (%) (Auto) , Differential Total Cells Counted 100, Neutrophils % (Manual) 43L, Lymphocytes % (Manual) 39, Monocytes % (Manual) 10, Eosinophils % (Manual) 8H, Basophils % ( Manual) 0, Band Neutrophils 0, Platelet Estimate IncreasedH, Platelet Morphology Normal, Hypochromasia 1+, Macrocytosis 1+, Sodium Level 140, Potassium Level 4.6, Chloride Level 99, Carbon Dioxide Level 27, Anion Gap 14, Blood Urea Nitrogen 24H, Creatinine 1.2H, Estimat Glomerular Filtration Rate , Glucose Level 93, Uric Acid 5.6, Calcium Level 9.2, Phosphorus Level 3.5, Magnesium Level 1.8, Total Bilirubin 0.4, Aspartate Amino Transf (AST/SGOT) 41H , Alanine Aminotransferase (ALT/SGPT) 49H, Alkaline Phosphatase 57, C-Reactive Protein, Quantitative 2.5H, Pro-B-Type Natriuretic Peptide 406H, Total Protein 6.1L, Albumin 3.2L, Globulin 2.9, Albumin/Globulin Ratio 1.1 Current Medications Medications (Trade) Dose Ordered Sig/Rhiannon Route PRN Reason Start Time Stop Time Status Last Admin Dose Admin Acetaminophen (Tylenol) 650 mg Q6H PRN ORAL Mild Pain/Temp > 100.5 12/12/16 15:00 01/11/17 14:59 12/12/16 15:57 Albuterol/ Ipratropium (DuoNeb 0.5-3(2.5)mg/3ml) 3 ml Q4H PRN HHN Shortness of Breath 12/12/16 15:00 12/17/16 14:59 Albuterol/ Ipratropium (DuoNeb 0.5-3(2.5)mg/3ml) 3 ml Q6HRT HHN 12/12/16 19:00 12/17/16 18:59 12/14/16 13:48 Aspirin (ASA) 81 mg DAILY ORAL 12/13/16 09:00 01/12/17 08:59 12/14/16 08:33 Furosemide (Lasix) 20 mg DAILY ORAL 12/13/16 09:00 01/12/17 08:59 12/14/16 08:33 Gabapentin (Neurontin) 300 mg THREE TIMES A DAY ORAL 12/12/16 18:00 01/11/17 17:59 12/14/16 13:10 Guaifenesin/ Dextromethorphan (Robitussin DM) 15 ml Q4H PRN ORAL For Cough 12/12/16 15:00 01/11/17 14:59 12/13/16 04:48 Heparin Sodium (Porcine) (Heparin 5000 units/ml) 5,000 units EVERY 12 HOURS SUBQ 12/12/16 21:00 01/11/17 20:59 12/14/16 08:58 Hydroxyurea (Hydrea) 500 mg DAILY ORAL 12/13/16 09:00 12/18/16 08:59 12/14/16 08:33 Lidocaine (Lidoderm 5% PATCH) 1 patch DAILY TDERMAL 12/13/16 09:00 01/12/17 08:59 12/14/16 08:43 Patient Own Medication (Patient's Own Med) 20 ea DAILY SUBQ 12/13/16 09:00 01/12/17 08:59 12/14/16 08:35 Polyethylene Glycol (Miralax) 17 gm BID ORAL 12/12/16 18:00 01/11/17 17:59 12/14/16 08:35 Promethazine HCl/ Codeine (Phenergan with Codeine) 5 ml Q4H PRN ORAL COUGH UNRELIEVED BY ROBITUSSIN 12/12/16 17:00 01/11/17 16:59 12/13/16 22:29 Ranitidine HCl (Zantac) 150 mg BEDTIME ORAL 12/12/16 21:00 01/11/17 20:59 12/13/16 20:22 Senna/Docusate Sodium (Bee-Colace) 1 ea TWICE A DAY ORAL 12/12/16 18:00 01/11/17 17:59 12/14/16 08:33 Sodium Chloride (NS) 500 ml @ 999 mls/hr DAILY PRN IV HYPOTESNSION 12/13/16 09:00 5/23/17 08:59 Timolol Maleate (Timoptic 0.5% Op Soln) 1 drop QHS BOTH EYES 12/12/16 21:00 01/11/17 20:59 12/13/16 20:22 Tolterodine Tartrate (Detrol) 4 mg TWICE A DAY ORAL 12/12/16 18:00 01/11/17 17:59 12/14/16 08:33 LEWIS SOTELO Dec 14, 2016 15:41
[2016-12-14 16:00] VITALS: BP 126/70
[2016-12-14] MEDS: Promethazine/Codeine 5ml UD ORAL PRN (16:44)
[2016-12-14 20:00] VITALS: BP 116/60
--- NOTE | 2016-12-14 20:10 | Cardiology Progress Note ---
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 megaloblastic anemia back pain ivf dcd palpitation but no sig tachy likey realted to hhn ivabx bp is ok renal function seem improved likely atn echo normal lv systolic fxn mild diastolic dysfunction dc plan per dr stephenson Subjective ROS Limited/Unobtainable: Yes Subjective sleeping Objective Last 24 Hour Vital Signs Date Time Temp Pulse Resp B/P Pulse Ox O2 Delivery O2 Flow Rate FiO2 12/14/16 16:00 98.2 90 20 126/70 94 Room Air 12/14/16 13:48 85 16 98 Room Air 12/14/16 13:43 84 18 93 Room Air 12/14/16 12:00 98.4 78 18 134/69 96 Room Air 12/14/16 11:46 78 18 Room Air 12/14/16 08:00 98.2 90 16 144/63 92 Room Air 12/14/16 06:55 84 16 98 Room Air 12/14/16 06:50 88 18 93 Room Air 12/14/16 04:00 98.2 72 18 115/68 92 Room Air 12/14/16 01:39 79 16 98 Room Air 12/14/16 01:17 85 18 93 Room Air 12/13/16 20:20 83 16 98 Room Air General Appearance: no apparent distress Intake and Output 12/13/16 12/14/16 19:00 07:00 Intake Total 1040 ml 200 ml Balance 1040 ml 200 ml Intake Oral 1040 ml 200 ml # Voids 4 1 # Bowel Movements 1 Laboratory Tests Test 12/14/16 07:05 White Blood Count 5.6 K/UL (4.8-10.8) Red Blood Count 2.50 M/UL (4.20-5.40) L Hemoglobin 9.6 G/DL (12.0-16.0) L Hematocrit 29.9 % (37.0-47.0) L Mean Corpuscular Volume 120 FL (80-99) H Mean Corpuscular Hemoglobin 38.4 PG (27.0-31.0) H Mean Corpuscular Hemoglobin Concent 32.1 G/DL (32.0-36.0) Red Cell Distribution Width 13.2 % (11.6-14.8) Platelet Count 503 K/UL (150-450) H Mean Platelet Volume 7.2 FL (6.5-10.1) Neutrophils (%) (Auto) % (45.0-75.0) Lymphocytes (%) (Auto) % (20.0-45.0) Monocytes (%) (Auto) % (1.0-10.0) Eosinophils (%) (Auto) % (0.0-3.0) Basophils (%) (Auto) % (0.0-2.0) Differential Total Cells Counted 100 Neutrophils % (Manual) 43 % (45-75) L Lymphocytes % (Manual) 39 % (20-45) Monocytes % (Manual) 10 % (1-10) Eosinophils % (Manual) 8 % (0-3) H Basophils % (Manual) 0 % (0-2) Band Neutrophils 0 % (0-8) Platelet Estimate Increased H Platelet Morphology Normal Hypochromasia 1+ Macrocytosis 1+ Sodium Level 140 mEQ/L (135-145) Potassium Level 4.6 mEQ/L (3.4-4.9) Chloride Level 99 mEQ/L (98-107) Carbon Dioxide Level 27 mEQ/L (20-30) Anion Gap 14 (5-15) Blood Urea Nitrogen 24 mg/dL (7-23) H Creatinine 1.2 mg/dL (0.5-0.9) H Estimat Glomerular Filtration Rate mL/min (>60) Glucose Level 93 mg/dL (74-106) Uric Acid 5.6 mg/dL (3.0-7.5) Calcium Level 9.2 mg/dL (8.6-10.2) Phosphorus Level 3.5 mg/dL (2.5-4.8) Magnesium Level 1.8 mg/dL (1.7-2.5) Total Bilirubin 0.4 mg/dL (0.0-1.2) Aspartate Amino Transf (AST/SGOT) 41 U/L (5-40) H Alanine Aminotransferase (ALT/SGPT) 49 U/L (3-33) H Alkaline Phosphatase 57 U/L (35-104) C-Reactive Protein, Quantitative 2.5 mg/dL (< 0.5) H Pro-B-Type Natriuretic Peptide 406 pg/mL (0-125) H Total Protein 6.1 g/dL (6.6-8.7) L Albumin 3.2 g/dL (3.5-5.2) L Globulin 2.9 g/dL Albumin/Globulin Ratio 1.1 (1.0-2.7) EDI RAMIREZ Dec 14, 2016 20:10
--- NOTE | 2016-12-16 10:10 | Discharge Summary ---
Discharge Summary Hospital Course Date of Admission Dec 07, 2016 at 19:05 Date of Discharge Dec 14, 2016 at 21:50 Admitting Diagnosis UTI, weakness, ARF HPI Ned Casarez is a 76 year old female who was admitted on Dec 07, 2016 at 19:05 for Urinary Tract Infection,Weakness, Hospital Course dc summary #[id number] Discharge Condition Upon Discharge: stable Discharge Disposition Patient was discharged to SNF Discharge Diagnoses: Discharge Instructions Discharge Instructions Special Instructions I have been assigned to complete a D/C Summary on this account. I was not involved in the patient management Vielka Escalera NP ([facility]) Dec 16, 2016 10:10
== END 2016-12-14 21:50 | disposition home or self-care (01) | DRG 683 ==
LOC: ENRESERVDT → ENRESERVTM → EDBD 16:25 → EDUNIT# 16:25 → EMR 16:55 → 4W 19:05 → EDBEDREQ 21:15 → 2E 12-08 01:28 → 3E 12-12 15:25
DX: N17.9 Acute kidney failure, unspecified (principal); N39.0 Urinary tract infection, site not specified; I95.9 Hypotension, unspecified; D64.9 Anemia, unspecified; D47.3 Essential (hemorrhagic) thrombocythemia; E86.0 Dehydration; B96.20 Unspecified Escherichia coli [E. coli] as the cause of diseases classified elsewhere; J41.1 Mucopurulent chronic bronchitis; I12.9 Hypertensive chronic kidney disease with stage 1 through stage 4 chronic kidney disease, or unspecified chronic kidney disease; N18.9 Chronic kidney disease, unspecified; Z88.8 Allergy status to other drugs, medicaments and biological substances; M19.90 Unspecified osteoarthritis, unspecified site; Z98.1 Arthrodesis status
CPT/HCPCS: 36415; 70450; 71010; 76700; 80048; 80053; 80061; 81003; 82533; 82550; 82553; 82607; 82728; 82977; 83036; 83540; 83550; 83605; 83735; 83880; 84100; 84300; 84443; 84484; 84550; 85007; 85025; 85651; 86140; 87040; 87070; 87086; 87181; 87205; 89050; 93005; 93306; 93970; 94640; 94664; 94760; C9399; J2405; J7620; J8499